=== PATIENT | male | born 1945 | race Caucasian/White ===

== ENCOUNTER 2020-07-02 09:47 | Outpatient (REF) | payer BC, SELFPAY ==
[2020-07-02 11:20] LABS: MANUAL DIFF FLAG NO
[2020-07-02 11:24] LABS: Basophils Absolute Auto 0.1 X10*3/uL (0.0-0.2); Basophils Percent Auto 1.5 % (0-2); Eosinophils Absolute Auto 0.3 X10*3/uL (0.0-0.4); Eosinophils Percent Auto 5.7 % (0-4); Hematocrit 42.4 % (42-52); Hemoglobin 13.1 g/dl (14.0-18.0); Imm Gran Abs Auto 0.03 X10*3/uL (0.00-0.03); Imm Gran Pct Auto 0.6 % (0.0-0.4); Lymphocytes Percent Auto 21.6 % (20-40); Mean Corpuscular HGB Conc 30.9 g/dl (31.0-36.0); Mean Corpuscular Hemoglobin 27.9 pg (27.0-33.0); Mean Corpuscular Volume 90.4 fL (80-98); Mean Platelet Volume 11.9 fL (9.4-12.4); Monocytes Absolute Auto 0.5 X10*3/uL (0.1-1.2); Monocytes Percent Auto 10.9 % (2-11); Neutrophils Absolute Auto 2.8 X10*3/uL (2.0-8.3); Neutrophils Percent Auto 59.7 % (45-73); Platelet Count 185 X10*3/uL (160-400); Red Blood Count 4.69 X10*6/uL (4.60-5.80); Red Cell Distribution Width 16.3 % (11.0-16.0); White Blood Count 4.8 X10*3/uL (4.8-10.8)
[2020-07-02 11:55] LABS: Glucose Urine UA NEG (NEG); Leukocyte Esterase Urine NEG (NEG); Nitrite Urine NEG (NEG); Specific Gravity - Urine 1.015 (1.005-1.025); Urine Blood NEG (NEG); Urine Ketones NEG (NEG); Urine Protein NEG (NEG-TRACE)
[2020-07-02 12:00] LABS: Appearance Urine CLEAR; Color Urine YELLOW
[2020-07-02 12:04] LABS: Alanine Aminotransferase 29 U/L (0-40); Albumin Level 4.1 g/dL (3.5-5.0); Alkaline Phosphatase 82 U/L (39-117); Anion Gap 10 (12-20); Aspartate Amino Transferase 28 U/L (5-37); Bilirubin Total 0.6 mg/dL (0.0-1.0); Blood Urea Nitrogen 21 mg/dL (9-16); Calcium 8.9 mg/dL (8.4-10.2); Carbon Dioxide 32 mmol/L (22-29); Chloride 105 mmol/L (96-108); Cholesterol 129 mg/dL; Estimated Glomerular Filt Rate > 60; Glucose Fasting 89 mg/dL (60-99); HDL Cholesterol 47 mg/dL; LDL Cholesterol Calculated 72 mg/dl; Potassium 3.9 mmol/l (3.3-5.1); Sodium 143 mmol/L (135-145); Total Protein 6.4 g/dL (6.5-8.0); Triglycerides 53 mg/dL
[2020-07-02 12:05] LABS: Microalbum/Creatinine Ratio Ur 11.1 ug/mg cr
[2020-07-02 12:08] LABS: TSH reflex Free T4 1.18 mIU/mL (0.32-4.0)
[2020-07-02 12:23] LABS: Folate 8.9 ng/mL (> or = 4.0); Vitamin B12 273 pg/mL (200-900)
[2020-07-02 12:38] LABS: Amorphous Sediment Urine 2+ /LPF; Mucus Urine 2+ /LPF; RBC Urine 0-2 /HPF (0); WBC Urine 0-2 /HPF (0-4)
== END 2020-07-02 09:48 | disposition home or self-care (01) ==
LOC: HO.HMGCLDS 09:47
PROVIDERS: PCP Internal Medicine; Visit Provider Internal Medicine
DX: E11.42 Type 2 diabetes mellitus with diabetic polyneuropathy (principal); E78.5 Hyperlipidemia, unspecified; I10 Essential (primary) hypertension; I89.0 Lymphedema, not elsewhere classified; E66.9 Obesity, unspecified
CPT/HCPCS: 36415; 80053; 80061; 81001; 82043; 82607; 82746; 84443; 85025

== ENCOUNTER 2020-09-24 10:50 | Outpatient (REF) | payer BC, SELFPAY ==
[2020-09-24 13:57] LABS: MANUAL DIFF FLAG NO
[2020-09-24 14:01] LABS: Glucose Urine UA NEG (NEG); Leukocyte Esterase Urine NEG (NEG); Nitrite Urine NEG (NEG); PH 7.5 (5.0-8.0); Specific Gravity - Urine 1.015 (1.005-1.025); Urine Blood NEG (NEG); Urine Ketones NEG (NEG); Urine Protein NEG (NEG-TRACE)
[2020-09-24 14:09] LABS: Basophils Absolute Auto 0.1 X10*3/uL (0.0-0.2); Basophils Percent Auto 1.8 % (0-2); Eosinophils Absolute Auto 0.3 X10*3/uL (0.0-0.4); Eosinophils Percent Auto 7.4 % (0-4); Hematocrit 44.1 % (42-52); Hemoglobin 13.8 g/dl (14.0-18.0); Imm Gran Abs Auto 0.01 X10*3/uL (0.00-0.03); Imm Gran Pct Auto 0.2 % (0.0-0.4); Lymphocytes Percent Auto 23.6 % (20-40); Mean Corpuscular HGB Conc 31.3 g/dl (31.0-36.0); Mean Corpuscular Hemoglobin 28.3 pg (27.0-33.0); Mean Corpuscular Volume 90.6 fL (80-98); Mean Platelet Volume 11.9 fL (9.4-12.4); Monocytes Absolute Auto 0.4 X10*3/uL (0.1-1.2); Monocytes Percent Auto 9.9 % (2-11); Neutrophils Absolute Auto 2.5 X10*3/uL (2.0-8.3); Neutrophils Percent Auto 57.1 % (45-73); Platelet Count 178 X10*3/uL (160-400); Red Blood Count 4.87 X10*6/uL (4.60-5.80); Red Cell Distribution Width 14.2 % (11.0-16.0); White Blood Count 4.3 X10*3/uL (4.8-10.8)
[2020-09-24 14:15] LABS: Appearance Urine CLEAR; Color Urine YELLOW
[2020-09-24 14:37] LABS: Creatinine Urine 44.71 mg/dL; Microalbum/Creatinine Ratio Ur 22.3 ug/mg cr
[2020-09-24 14:55] LABS: Alanine Aminotransferase 30 U/L (0-40); Albumin Level 4.2 g/dL (3.5-5.0); Alkaline Phosphatase 95 U/L (39-117); Anion Gap 11 (12-20); Aspartate Amino Transferase 27 U/L (5-37); Bilirubin Total 0.7 mg/dL (0.0-1.0); Blood Urea Nitrogen 13 mg/dL (9-16); Calcium 9.1 mg/dL (8.4-10.2); Carbon Dioxide 31 mmol/L (22-29); Chloride 102 mmol/L (96-108); Cholesterol 119 mg/dL; Estimated Glomerular Filt Rate > 60; Glucose Fasting 126 mg/dL (60-99); HDL Cholesterol 47 mg/dL; LDL Cholesterol Calculated 62 mg/dl; Sodium 140 mmol/L (135-145); Total Protein 6.6 g/dL (6.5-8.0); Triglycerides 54 mg/dL
[2020-09-24 14:59] LABS: TSH reflex Free T4 1.06 mIU/mL (0.32-4.0)
== END 2020-09-24 10:51 | disposition home or self-care (01) ==
LOC: HO.HMGCLDS 10:50
PROVIDERS: PCP Internal Medicine; Visit Provider Internal Medicine
DX: I10 Essential (primary) hypertension (principal); E11.9 Type 2 diabetes mellitus without complications; E78.5 Hyperlipidemia, unspecified
CPT/HCPCS: 36415; 80053; 80061; 81003; 82043; 84443; 85025

== ENCOUNTER 2021-01-19 14:58 | Outpatient (REF) | payer BC, SELFPAY ==
--- NOTE | ~2021-01-19 | US_ITS ---
EXAMINATION: US VENOUS ULTRASOUND WITH DOPPLER LOWER EXTREMITY, RIGHT CLINICAL INFORMATION: Pain right lower extremity. Assess for occult DVT COMPARISON: None TECHNIQUE: Ultrasound of the deep veins is performed from the hip to the calf with compression sonography and color and pulse Doppler assessment. Spectral analysis with color-flow imaging is performed. FINDINGS: There is normal venous compression and respiratory variation and augmented flow. The visualized common femoral vein, superficial femoral vein, profunda femoral vein, popliteal vein, and the trifurcation region shows no evidence of deep venous thrombosis. No popliteal fossa cyst demonstrated. US/US venous duplex LE RT IMPRESSION: No DVT demonstrated in the right lower extremity.
== END 2021-01-19 14:59 | disposition home or self-care (01) ==
LOC: HO.US 14:58
PROVIDERS: PCP Internal Medicine; Visit Provider Internal Medicine
DX: M79.661 Pain in right lower leg (principal); M79.89 Other specified soft tissue disorders
CPT/HCPCS: 93971

== ENCOUNTER 2021-04-17 10:54 | Outpatient (REF) | payer BC, SELFPAY ==
[2021-04-17 13:57] LABS: Glucose Urine UA NEG (NEG); Leukocyte Esterase Urine NEG (NEG); MANUAL DIFF FLAG NO; Nitrite Urine NEG (NEG); Urine Blood NEG (NEG); Urine Ketones NEG (NEG); Urine Protein NEG (NEG-TRACE)
[2021-04-17 13:58] LABS: Appearance Urine CLEAR; Color Urine YELLOW
[2021-04-17 14:02] LABS: Basophils Absolute Auto 0.1 X10*3/uL (0.0-0.2); Basophils Percent Auto 1.8 % (0-2); Eosinophils Absolute Auto 0.2 X10*3/uL (0.0-0.4); Eosinophils Percent Auto 5.2 % (0-4); Hematocrit 42.7 % (42-52); Hemoglobin 13.1 g/dl (14.0-18.0); Imm Gran Abs Auto 0.02 X10*3/uL (0.00-0.03); Imm Gran Pct Auto 0.4 % (0.0-0.4); Lymphocytes Percent Auto 21.3 % (20-40); Mean Corpuscular HGB Conc 30.7 g/dl (31.0-36.0); Mean Corpuscular Hemoglobin 27.3 pg (27.0-33.0); Mean Corpuscular Volume 89.1 fL (80-98); Mean Platelet Volume 12.2 fL (9.4-12.4); Monocytes Absolute Auto 0.5 X10*3/uL (0.1-1.2); Monocytes Percent Auto 11.5 % (2-11); Neutrophils Absolute Auto 2.7 X10*3/uL (2.0-8.3); Neutrophils Percent Auto 59.8 % (45-73); Platelet Count 150 X10*3/uL (160-400); Red Blood Count 4.79 X10*6/uL (4.60-5.80); Red Cell Distribution Width 15.7 % (11.0-16.0); White Blood Count 4.5 X10*3/uL (4.8-10.8)
[2021-04-17 14:27] LABS: Alanine Aminotransferase 27 U/L (0-40); Alkaline Phosphatase 85 U/L (39-117); Anion Gap 12 (12-20); Aspartate Amino Transferase 34 U/L (5-37); Bilirubin Total 0.6 mg/dL (0.0-1.0); Blood Urea Nitrogen 14 mg/dL (9-16); Calcium 9.3 mg/dL (8.4-10.2); Carbon Dioxide 28 mmol/L (22-29); Chloride 104 mmol/L (96-108); Cholesterol 129 mg/dL; Estimated Glomerular Filt Rate > 60; Glucose Fasting 107 mg/dL (60-99); HDL Cholesterol 52 mg/dL; LDL Cholesterol Calculated 67 mg/dl; Potassium 4.2 mmol/L (3.3-5.1); Sodium 140 mmol/L (135-145); Total Protein 6.6 g/dL (6.5-8.0); Triglycerides 53 mg/dL
[2021-04-17 14:28] LABS: Estimated Average Glucose 137 mg/dL; Hemoglobin A1c % 6.4 %
[2021-04-17 14:46] LABS: Creatinine Urine 67.39 mg/dL; Microalbum/Creatinine Ratio Ur 20.7 ug/mg cr
[2021-04-17 14:50] LABS: TSH reflex Free T4 0.94 uIU/mL (0.32-4.0)
== END 2021-04-17 10:55 | disposition home or self-care (01) ==
LOC: HO.HMGCLDS 10:54
PROVIDERS: PCP Internal Medicine; Visit Provider Internal Medicine
DX: E11.9 Type 2 diabetes mellitus without complications (principal); E78.00 Pure hypercholesterolemia, unspecified; I10 Essential (primary) hypertension
CPT/HCPCS: 36415; 80053; 80061; 81003; 82043; 83036; 84443; 85025

== ENCOUNTER 2021-08-07 10:33 | Outpatient (REF) | payer BC, SELFPAY ==
[2021-08-07 13:54] LABS: MANUAL DIFF FLAG NO
[2021-08-07 14:01] LABS: Basophils Absolute Auto 0.1 X10*3/uL (0.0-0.2); Basophils Percent Auto 2.1 % (0-2); Eosinophils Absolute Auto 0.3 X10*3/uL (0.0-0.4); Eosinophils Percent Auto 5.7 % (0-4); Hematocrit 43.7 % (42.0-52.0); Hemoglobin 13.7 g/dl (14.0-18.0); Imm Gran Abs Auto 0.02 X10*3/uL (0.00-0.03); Imm Gran Pct Auto 0.4 % (0.0-0.4); Lymphocytes Absolute Auto 1.2 X10*3/uL (1.2-4.9); Lymphocytes Percent Auto 24.3 % (20-40); Mean Corpuscular HGB Conc 31.4 g/dl (31.0-36.0); Mean Corpuscular Volume 89.2 fL (80.0-98.0); Mean Platelet Volume 12.1 fL (9.4-12.4); Monocytes Absolute Auto 0.5 X10*3/uL (0.1-1.2); Monocytes Percent Auto 10.8 % (2-11); Neutrophils Absolute Auto 2.7 x10*3/uL (2.0-8.3); Neutrophils Percent Auto 56.7 % (45-73); Platelet Count 152 X10*3/uL (160-400); Red Cell Distribution Width 14.6 % (11.0-16.0); White Blood Count 4.7 X10*3/uL (4.8-10.8)
[2021-08-07 14:12] LABS: Appearance Urine CLEAR; Color Urine YELLOW; Glucose Urine UA NEG (NEG); Leukocyte Esterase Urine NEG (NEG); Nitrite Urine NEG (NEG); PH 7.5 (5.0-8.0); Urine Blood NEG (NEG); Urine Ketones NEG (NEG); Urine Protein NEG (NEG-TRACE)
[2021-08-07 14:20] LABS: Alanine Aminotransferase 47 U/L (0-40); Alkaline Phosphatase 82 U/L (39-117); Anion Gap 11 (12-20); Aspartate Amino Transferase 38 U/L (5-37); Bilirubin Total 0.7 mg/dL (0.0-1.0); Blood Urea Nitrogen 14 mg/dL (9-16); Calcium 9.2 mg/dL (8.4-10.2); Carbon Dioxide 30 mmol/L (22-29); Chloride 102 mmol/L (96-108); Cholesterol 126 mg/dL; Estimated Glomerular Filt Rate > 60; Glucose Fasting 108 mg/dL (60-99); HDL Cholesterol 46 mg/dL; LDL Cholesterol Calculated 68 mg/dl; Sodium 139 mmol/L (135-145); Total Protein 6.4 g/dL (6.5-8.0); Triglycerides 62 mg/dL
[2021-08-07 14:26] LABS: Creatinine Urine 58.49 mg/dL; Microalbum/Creatinine Ratio Ur 25.6 ug/mg cr
[2021-08-07 14:46] LABS: Prostate Specific Antigen 4.13 ng/mL (<0.05-4.0); TSH reflex Free T4 1.79 uIU/mL (0.32-4.0); Vitamin D 25-OH Total 11.1 ng/mL (>30)
[2021-08-07 15:02] LABS: Folate 9.9 ng/mL (> or = 4.0); Vitamin B12 270 pg/mL (200-900)
== END 2021-08-07 10:34 | disposition home or self-care (01) ==
LOC: HO.HMGCLDS 10:33
PROVIDERS: PCP Internal Medicine; Visit Provider Internal Medicine
DX: Z00.00 Encounter for general adult medical examination without abnormal findings (principal); E55.9 Vitamin D deficiency, unspecified; G57.93 Unspecified mononeuropathy of bilateral lower limbs; I10 Essential (primary) hypertension; E11.42 Type 2 diabetes mellitus with diabetic polyneuropathy; E78.00 Pure hypercholesterolemia, unspecified; E66.9 Obesity, unspecified; I89.0 Lymphedema, not elsewhere classified; N40.0 Benign prostatic hyperplasia without lower urinary tract symptoms; E11.9 Type 2 diabetes mellitus without complications
CPT/HCPCS: 36415; 80053; 80061; 81003; 82043; 82306; 82607; 82746; 84153; 84443; 85025

== ENCOUNTER 2021-12-10 11:09 | Outpatient (REF) | payer BC, SELFPAY ==
[2021-12-10 13:58] LABS: MANUAL DIFF FLAG NO
[2021-12-10 14:02] LABS: Basophils Absolute Auto 0.1 X10*3/uL (0.0-0.2); Basophils Percent Auto 1.7 % (0-2); Eosinophils Absolute Auto 0.3 X10*3/uL (0.0-0.4); Eosinophils Percent Auto 5.4 % (0-4); Hematocrit 43.1 % (42.0-52.0); Hemoglobin 13.7 g/dl (14.0-18.0); Imm Gran Abs Auto 0.02 X10*3/uL (0.00-0.03); Imm Gran Pct Auto 0.4 % (0.0-0.4); Lymphocytes Absolute Auto 1.1 X10*3/uL (1.2-4.9); Lymphocytes Percent Auto 22.1 % (20-40); Mean Corpuscular HGB Conc 31.8 g/dl (31.0-36.0); Mean Corpuscular Hemoglobin 28.7 pg (27.0-33.0); Mean Corpuscular Volume 90.2 fL (80.0-98.0); Mean Platelet Volume 11.7 fL (9.4-12.4); Monocytes Absolute Auto 0.5 X10*3/uL (0.1-1.2); Monocytes Percent Auto 11.2 % (2-11); Neutrophils Absolute Auto 2.9 x10*3/uL (2.0-8.3); Neutrophils Percent Auto 59.2 % (45-73); Platelet Count 173 X10*3/uL (160-400); Red Blood Count 4.78 X10*6/uL (4.60-5.80); Red Cell Distribution Width 14.6 % (11.0-16.0); White Blood Count 4.8 X10*3/uL (4.8-10.8)
[2021-12-10 14:14] LABS: Appearance Urine CLEAR; Color Urine YELLOW; Glucose Urine UA NEG (NEG); Leukocyte Esterase Urine NEG (NEG); Nitrite Urine NEG (NEG); Specific Gravity - Urine <= 1.005 (1.005-1.025); UACC Culture Trigger NO; Urine Blood TRACE (NEG); Urine Ketones NEG (NEG); Urine Protein NEG (NEG-TRACE)
[2021-12-10 14:18] LABS: Estimated Average Glucose 151 mg/dL; Hemoglobin A1c % 6.9 %
[2021-12-10 14:22] LABS: Alanine Aminotransferase 89 U/L (0-40); Albumin Level 4.1 g/dL (3.5-5.0); Alkaline Phosphatase 81 U/L (39-117); Anion Gap 13 (12-20); Aspartate Amino Transferase 52 U/L (5-37); Bilirubin Total 0.7 mg/dL (0.0-1.0); Blood Urea Nitrogen 13 mg/dL (9-16); Calcium 9.6 mg/dL (8.4-10.2); Carbon Dioxide 27 mmol/L (22-29); Chloride 104 mmol/L (96-108); Cholesterol 135 mg/dL; Estimated Glomerular Filt Rate > 60; Glucose Fasting 119 mg/dL (60-99); HDL Cholesterol 47 mg/dL; LDL Cholesterol Calculated 72 mg/dl; Sodium 140 mmol/L (135-145); Total Protein 6.6 g/dL (6.5-8.0); Triglycerides 80 mg/dL
[2021-12-10 14:33] LABS: Creatinine Urine 41.92 mg/dL; Microalbum/Creatinine Ratio Ur 21.4 ug/mg cr
[2021-12-10 14:41] LABS: WBC Urine 0-2 /HPF (0-4)
[2021-12-10 14:42] LABS: Squamous Epithelial Cell Urine TRACE /LPF
== END 2021-12-10 11:10 | disposition home or self-care (01) ==
LOC: HO.HMGCLDS 11:09
PROVIDERS: Visit Provider Internal Medicine
DX: I10 Essential (primary) hypertension (principal); E11.9 Type 2 diabetes mellitus without complications; E55.9 Vitamin D deficiency, unspecified; E78.00 Pure hypercholesterolemia, unspecified
CPT/HCPCS: 36415; 80053; 80061; 81001; 81003; 82043; 82306; 83036; 84443; 85025

== ENCOUNTER 2022-05-12 11:05 | Outpatient (REF) | payer BC, SELFPAY ==
[2022-05-12 13:55] LABS: Appearance Urine Clear; Color Urine Yellow; Glucose Urine UA Negative (Negative); Leukocyte Esterase Urine Negative (Negative); Nitrite Urine Negative (Negative); Specific Gravity - Urine 1.015 (1.005-1.025); Urine Ketones Negative (Negative); Urine Protein Trace mg/dL (Neg-Trace)
[2022-05-12 13:59] LABS: Urine Blood Trace (Negative)
[2022-05-12 14:03] LABS: Basophils Absolute Auto 0.1 X10*3/uL (0.0-0.2); Basophils Percent Auto 2.1 % (0-2); Eosinophils Absolute Auto 0.2 X10*3/uL (0.0-0.4); Eosinophils Percent Auto 4.7 % (0-4); Hematocrit 45.8 % (42.0-52.0); Hemoglobin 14.4 g/dl (14.0-18.0); Imm Gran Abs Auto 0.02 X10*3/uL (0.00-0.03); Imm Gran Pct Auto 0.5 % (0.0-0.4); Lymphocytes Absolute Auto 0.8 X10*3/uL (1.2-4.9); Lymphocytes Percent Auto 19.9 % (20-40); MANUAL DIFF FLAG SCAN; Mean Corpuscular HGB Conc 31.4 g/dl (31.0-36.0); Mean Corpuscular Hemoglobin 28.2 pg (27.0-33.0); Mean Corpuscular Volume 89.6 fL (80.0-98.0); Mean Platelet Volume 11.9 fL (9.4-12.4); Monocytes Absolute Auto 0.4 X10*3/uL (0.1-1.2); Monocytes Percent Auto 11.1 % (2-11); Neutrophils Absolute Auto 2.4 x10*3/uL (2.0-8.3); Neutrophils Percent Auto 61.7 % (45-73); PLT CLUMP 1; Red Blood Count 5.11 X10*6/uL (4.60-5.80); Red Cell Distribution Width 14.1 % (11.0-16.0); SCAN SMEAR FLAG 1
[2022-05-12 14:04] LABS: Bacteria Urine None Seen (None Seen); Hyaline Casts Urine 0-2 /LPF (0-2); Squamous Epithelial Cell Urine 0-2 /HPF (0-2); WBC Urine 0-5 /HPF (0-5)
[2022-05-12 14:05] LABS: White Blood Count 3.9 X10*3/uL (4.8-10.8)
[2022-05-12 14:06] LABS: Platelet Count 155 X10*3/uL (160-400)
[2022-05-12 14:26] LABS: SLIDE REVIEW VERIFIED
[2022-05-12 14:29] LABS: Alanine Aminotransferase 21 U/L (0-40); Albumin Level 4.1 g/dL (3.5-5.0); Alkaline Phosphatase 84 U/L (39-117); Anion Gap 14 (12-20); Aspartate Amino Transferase 21 U/L (5-37); Bilirubin Total 0.6 mg/dL (0.0-1.0); Blood Urea Nitrogen 14 mg/dL (9-16); Calcium 9.1 mg/dL (8.4-10.2); Carbon Dioxide 28 mmol/L (22-29); Chloride 104 mmol/L (96-108); Cholesterol 132 mg/dL; Estimated Glomerular Filt Rate > 60; Glucose Fasting 135 mg/dL (60-99); HDL Cholesterol 50 mg/dL; LDL Cholesterol Calculated 71 mg/dl; Potassium 3.8 mmol/L (3.3-5.1); Sodium 142 mmol/L (135-145); Total Protein 6.6 g/dL (6.5-8.0); Triglycerides 58 mg/dL
[2022-05-12 14:34] LABS: Estimated Average Glucose 148 mg/dL; Hemoglobin A1c % 6.8 %
[2022-05-12 14:46] LABS: Creatinine Urine 79.65 mg/dL; Microalbum/Creatinine Ratio Ur 80.3 ug/mg cr
[2022-05-12 14:52] LABS: TSH reflex Free T4 1.36 uIU/mL (0.32-4.0); Vitamin D 25-OH Total 27.5 ng/mL (>30)
== END 2022-05-12 11:06 | disposition home or self-care (01) ==
LOC: HO.HMGCLDS 11:05
PROVIDERS: PCP Internal Medicine; Visit Provider Internal Medicine
DX: E78.00 Pure hypercholesterolemia, unspecified (principal); E11.9 Type 2 diabetes mellitus without complications; E55.9 Vitamin D deficiency, unspecified; I10 Essential (primary) hypertension
CPT/HCPCS: 36415; 80053; 80061; 81003; 82043; 82306; 83036; 84443; 85025

== ENCOUNTER 2023-03-15 09:10 | Outpatient (REF) | payer BC, SELFPAY ==
[2023-03-15 11:27] LABS: MANUAL DIFF FLAG NO
[2023-03-15 11:38] LABS: Basophils Absolute Auto 0.1 X10*3/uL (0.0-0.2); Basophils Percent Auto 2.6 % (0-2); Eosinophils Absolute Auto 0.4 X10*3/uL (0.0-0.4); Eosinophils Percent Auto 8.8 % (0-4); Hematocrit 44.7 % (42.0-52.0); Imm Gran Abs Auto 0.02 X10*3/uL (0.00-0.03); Imm Gran Pct Auto 0.4 % (0.0-0.4); Lymphocytes Absolute Auto 0.9 X10*3/uL (1.2-4.9); Lymphocytes Percent Auto 18.6 % (20-40); Mean Corpuscular HGB Conc 31.3 g/dl (31.0-36.0); Mean Corpuscular Hemoglobin 28.3 pg (27.0-33.0); Mean Corpuscular Volume 90.5 fL (80.0-98.0); Mean Platelet Volume 11.6 fL (9.4-12.4); Monocytes Absolute Auto 0.6 X10*3/uL (0.1-1.2); Neutrophils Absolute Auto 2.7 x10*3/uL (2.0-8.3); Neutrophils Percent Auto 57.6 % (45-73); Platelet Count 172 X10*3/uL (160-400); Red Blood Count 4.94 X10*6/uL (4.60-5.80); Red Cell Distribution Width 14.1 % (11.0-16.0); White Blood Count 4.7 X10*3/uL (4.8-10.8)
[2023-03-15 11:50] LABS: Estimated Average Glucose 134 mg/dL; Hemoglobin A1c % 6.3 %
[2023-03-15 11:56] LABS: Appearance Urine Clear; Color Urine Yellow; Glucose Urine UA Negative (Negative); Leukocyte Esterase Urine Negative (Negative); Nitrite Urine Negative (Negative); Urine Blood Negative (Negative); Urine Ketones Negative (Negative); Urine Protein Negative (Neg-Trace)
[2023-03-15 12:19] LABS: Alanine Aminotransferase 20 U/L (0-40); Albumin Level 3.8 g/dL (3.5-5.0); Alkaline Phosphatase 79 U/L (39-117); Anion Gap 12 (12-20); Aspartate Amino Transferase 24 U/L (5-37); Bilirubin Total 0.8 mg/dL (0.0-1.0); Blood Urea Nitrogen 12 mg/dL (9-16); Calcium 9.9 mg/dL (8.4-10.2); Carbon Dioxide 31 mmol/L (22-29); Chloride 102 mmol/L (96-108); Cholesterol 181 mg/dL; Estimated Glomerular Filt Rate > 60; Glucose Fasting 126 mg/dL (60-99); HDL Cholesterol 42 mg/dL; LDL Cholesterol Calculated 115 mg/dl; Potassium 4.1 mmol/L (3.3-5.1); Sodium 141 mmol/L (135-145); Total Protein 6.9 g/dL (6.5-8.0); Triglycerides 122 mg/dL
[2023-03-15 12:25] LABS: TSH reflex Free T4 1.41 uIU/mL (0.32-4.0); Vitamin D 25-OH Total 65.3 ng/mL (>30)
[2023-03-15 12:40] LABS: Folate 7.9 ng/mL (> or = 4.0); Vitamin B12 266 pg/mL (200-900)
[2023-03-15 13:11] LABS: Creatinine Urine 62.74 mg/dL
== END 2023-03-15 09:11 | disposition home or self-care (01) ==
LOC: HO.HMGCLDS 09:10
PROVIDERS: PCP Internal Medicine; Visit Provider Internal Medicine
DX: E78.00 Pure hypercholesterolemia, unspecified (principal); I10 Essential (primary) hypertension; E11.9 Type 2 diabetes mellitus without complications; R30.0 Dysuria; E55.9 Vitamin D deficiency, unspecified; E53.8 Deficiency of other specified B group vitamins
CPT/HCPCS: 36415; 80053; 80061; 81003; 82043; 82306; 82607; 82746; 83036; 84443; 85025

== ENCOUNTER 2023-04-26 10:15 | Outpatient (AMB) | payer BC, SELFPAY ==
[2023-04-26 10:16] VITALS: BP 146/70; PULSE 97; O2SAT 96; BMI 37.1
--- NOTE | 2023-04-26 10:16 | A.OFFPC_ITS ---
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 Required: No Accompanied by: Self / Same As Patient Allergies penicillin V Allergy (Severe, Verified 04/26/23 11:02) hives Medication List - Last Reconciled 04/26/23 by Joshua Rahman MD amlodipine-benazepril 10-20 mg 1 cap PO DAILY aspirin (Adult Low Dose Aspirin) 81 mg PO DAILY atorvastatin 40 mg PO QPM cholecalciferol (vitamin D3) 50 mcg PO DAILY 90 days doxepin 25 mg PO BEDTIME PRN 30 days fexofenadine (Radha Allergy) 180 mg PO DAILY PRN furosemide 20 mg PO QAM PRN glipizide 10 mg PO DAILY hydrochlorothiazide 25 mg PO DAILY 90 days meloxicam 15 mg PO DAILY PRN 90 days metformin 2 tabs in am and 1 tab in pm PO 2 times a day; 90 days mirtazapine 30 mg PO BEDTIME pioglitazone 30 mg PO DAILY 90 days Tobacco use date assessed: 04/26/23 Fall risk assessment: No Falls in past year Last assessed Fall Risk: 04/26/23 Dental Screening Dental Screen Date: 04/26/23 Did you have a dental visit in the last 12 months?: Yes Did you have a dental problem in the last 6 months where you did not have access to dental care?: No Was dental information given to patient?: Patient has dentist HPI [facility] f/u HPI Details Patient comes in today for his follow up visit States that he feels okay Still has a recurrent cough that he's had for the last 2 years - feels that it is mostly from allergies and states that it comes and goes and does not really bother him too much Coughs up clear phlegm at times and states that it seems to calm down when the weather turns cooler He denies any fever, sore throat or any nasal congestion Denies any headaches or dizziness Denies any chest pains, no SOB No nausea/vomiting, no abdominal pain No change in bowel habits noted States that his previous depression (from when his last fall) has gotten a lot better over the past few months Needs a few of his Rx refilled Had his follow up labs done last month - to discuss his results Would also like to get a referral to see podiatry for his toes/toenails - states that a few of his toenails are thick and disfigured PENDING SALE TO [facility] Medical History Anxiety Carpal tunnel syndrome, left Cataracts, bilateral Controlled diabetes mellitus with diabetic polyneuropathy Diabetes mellitus Essential hypertension Insomnia Lymphedema of both lower extremities Neuropathic pain of both feet Obesity (BMI 30-39.9) Pain and swelling of right lower leg Pain of left lateral upper thigh Surgical History History of appendectomy History of hemorrhoidectomy Pure hypercholesterolemia Family History Father Lung cancer Mother FH: ovarian cancer Social History Housing: House Alcohol intake: current Alcohol intake frequency: a few times a week Patient Tobacco Use Status: Never used Tobacco e-Cigarette/Vaping Use: Never Used Second Hand Smoke Exposure: Yes service: Yes Current occupational status: retired Cognitive needs: No Hearing needs: No Vision needs: Yes Questionnaire PHQ-9 Over the last 2 weeks, how often have you been bothered by any of the following problems? 1. Little interest or pleasure in doing things: more than half the days 2. Feeling down, depressed, or hopeless: more than half the days 3. Trouble falling or staying asleep, or sleeping too much: more than half the days 4. Feeling tired or having little energy: more than half the days 5. Poor appetite or overeating: more than half the days 6. Feeling bad about yourself - or that you are a failure or have let yourself or your family down: not at all 7. Trouble concentrating on things, such as reading the newspaper or watching television: not at all 8. Moving or speaking so slowly that other people could have noticed. Or the opposite - being so fidgety or restless that you have been moving around a lot more than usual: not at all 9. Thoughts that you would be better off or of hurting yourself in some way: not at all Total score: 10 Depression Screening Interpretation: Positive (states that his mood symptoms have gotten a lot better lately) Depression Screening Follow-up: Existing condition and In treatment 99150 - PHQ-9 Billing: Yes Source: Developed by Drs. Vijay Mason, Isabelle Morales, Haris Lopez and colleagues, with an educational yosi from [employer]. Thrive Questionnaire Date Thrive assessed: 04/26/23 I am a: Patient What is your living situation today?: I have a steady place to live Within the past 12 months, did the food you bought not last and you didn't have the money to get more?: Never true Within the past 12 months, did you worry whether your food would run out before you got money to buy more?: Never true Do you have trouble paying for medicines?: No Do you have trouble getting transportation to medical appointments?: No Do you have trouble paying your heating and electricity bill?: No Do you have trouble taking care of your child, family member or friend?: No Do you have trouble with day-to-day activities such as bathing, preparing meals, shopping, managing finances, etc.?: No Are you currently unemployed and looking for a job?: No Are you interested in more education?: No Please select the resources that you would like help with: None Currently or been in a relationship where the following occur: no concerns reported AUDIT C Alcohol Use Questionnaire (AUDIT-C) 1. How often do you have a drink containing alcohol?: Never 3. How often do you have six or more drinks on one occasion?: Never Total Score: 0 Score Reviewed/Action Taken: Yes KIRILL-7 AMB Questionnaire KIRILL-7 Date KIRILL - 7 assessed: 04/26/23 Feeling nervous, anxious, or on edge: 0 = Not at all Not being able to stop or control worryin = Not at all Worrying too much about different things: 0 = Not at all Trouble relaxin = Not at all Being so restless that it is hard to sit still: 0 = Not at all Becoming easily annoyed or irritable: 0 = Not at all Feeling afraid as if something awful might happen: 0 = Not at all Total KIRILL-7 score (0-4 normal; 5-9 mild; 10-14 moderate; 15-21 severe): 0 Source: Developed by Drs. Vijay Mason, Isabelle Morales, Haris Lopez and colleagues, with an educational yosi from [employer]. Review of Systems Const Denies fatigue, Denies fever(s) and Denies headache(s) ENT Denies dysphagia, Denies dizziness, Denies otalgia, Denies headache(s), Denies nasal congestion, Denies neck pain and Denies sore throat Card Denies chest pain and Reports dyspnea on exertion (mild) Resp Denies chest congestion, Reports cough (on and off - see HPI), Denies excessive phlegm production, Reports dyspnea on exertion (mild) and Denies wheezing GI Denies abdominal pain, Denies constipation, Denies dysphagia, Denies heartburn, Denies diarrhea, Denies nausea and Denies vomiting Denies dysuria, Denies nocturia and Reports urinary frequency (mostly during the day and after he drinks his morning coffee) Musc Reports back pain (on and off over the lower back), Reports arthralgias (left hip) and Denies neck pain Neuro Denies dizziness and Denies headache(s) Psych Reports depression (improving) Endo Denies fatigue Nolberto/Lymph Details: frequent swelling of both legs and feet Aller/Immun Denies wheezing Physical exam (Primary Care) Vital Signs: Last Vital Signs Pulse 97 04/26/23 10:16 BP 146/70 H 04/26/23 10:16 Pulse Ox 96 04/26/23 10:16 Oxygen Delivery Method Room Air 04/26/23 10:16 BMI result Body Mass Index 37.1 Tobacco/Smoking Status: Tobacco use Status Tobacco use date assessed 04/26/23 04/26/23 10:22 Patient Tobacco Use Status Never used Tobacco 04/26/23 10:22 e-Cigarette/Vaping Use Never Used 04/26/23 10:22 PHQ-9: PHQ-9 Score PHQ-9: Total score 10 04/26/23 10:22 Depression Screening Interpretation: Positive (states that his mood symptoms have gotten a lot better lately) Depression Screening Follow-up: Existing condition and In treatment Thrive Assessment: Date of Thrive Assessment Date Thrive assessed 04/26/23 04/26/23 10:22 Currently or been in a relationship where the following occur: no concerns reported Const General: no acute distress and alert HENMT Ears: TM's normal bilaterally and EAC's normal Throat: Yes posterior oropharynx normal and Yes tonsils normal (no TP congestion noted) Neck Neck: Yes no lymphadenopathy and Yes supple Resp Auscultation: clear to auscultation bilaterally, no rales and no wheezes Cardio Rate: regular rate Rhythm: regular rhythm Heart sounds: no murmurs GI Palpation (GI): Soft to palpation and nontender Auscultation: normal bowel sounds Back/Spine/Pelvis Thoracic/Lumbar Spine: lumbar spinal tenderness Skin Rashes: no rashes Extrem General: No clubbing, No cyanosis and Yes edema (2+ edema of both legs and feet - currently has compression stockings on) Left lower extremity: hip/thigh Details: tenderness Location: of the hip Results Reviewed Results Reviewed: Laboratory Tests 07/02/20 07/02/20 03/15/23 10:00 10:00 09:16 WBC 4.8 4.7 L Hgb 13.1 L 14.0 Hct 42.4 44.7 Plt Count 185 172 Sodium 143 Potassium 3.9 Creatinine 0.95 Estimated GFR > 60 Fasting Glucose Hemoglobin A1c % Calcium AST ALT Triglycerides Cholesterol LDL Cholesterol, Calc HDL Cholesterol Vitamin B12 25-OH Vitamin D Total TSH Ur Specific [place] Urine Protein Urine Glucose (UA) Urine Blood Microalb/Creat Ratio 03/15/23 03/15/23 03/15/23 09:16 09:16 09:16 WBC Hgb Hct Plt Count Sodium 141 Potassium 4.1 Creatinine 0.88 Estimated GFR > 60 Fasting Glucose 126 H Hemoglobin A1c % 6.3 Calcium 9.9 D AST 24 ALT 20 Triglycerides 122 Cholesterol 181 LDL Cholesterol, Calc 115 HDL Cholesterol 42 Vitamin B12 266 25-OH Vitamin D Total 65.3 TSH 1.41 Ur Specific [place] Urine Protein Urine Glucose (UA) Urine Blood Microalb/Creat Ratio 03/15/23 03/15/23 09:20 09:20 WBC Hgb Hct Plt Count Sodium Potassium Creatinine Estimated GFR Fasting Glucose Hemoglobin A1c % Calcium AST ALT Triglycerides Cholesterol LDL Cholesterol, Calc HDL Cholesterol Vitamin B12 25-OH Vitamin D Total TSH Ur Specific [place] 1.010 Urine Protein Negative Urine Glucose (UA) Negative Urine Blood Negative Microalb/Creat Ratio 27.0 Assessment and Plan Assessment & Plan (1) Essential hypertension: Code(s): I10 - Essential (primary) hypertension Plan: Reinforced low sodium diet - goal is systolic BP of at least 140 mm or less Continue Amlodipine-Benazepril 10-20 mg QD and HCTZ 25 mg QD Patient instructed to continue monitoring his BP closely (2) Pure hypercholesterolemia: Code(s): E78.00 - Pure hypercholesterolemia, unspecified Plan: Results of his labs done last month reviewed and discussed with patient - advised that his cholesterol levels have increased significantly from last year Patient admits that he has been out of his Atorvastatin for months now; will start him back on Atorvastatin 40 mg QD - Rx refilled Reinforced low cholesterol diet Will recheck his labs again in 4 months for follow up (3) Diabetes mellitus: Code(s): E11.9 - Type 2 diabetes mellitus without complications Qualifiers: Diabetes mellitus type: type 2 Diabetes mellitus termite inspector insulin use: without termite inspector use Diabetes mellitus complication status: with neurologic complications Diabetes mellitus complication detail: with polyneuropathy Qualified Code(s): E11.42 - Type 2 diabetes mellitus with diabetic polyneuropathy Plan: HgbA1c was at 6.3% on his labs done last month (was at 6.8% on his labs done previously in April 2022) - goal is <7.0% Reinforced diabetic diet Continue Glipizide 10 mg QD, Pioglitazone 30 mg QD and Metformin 500 mg BID - Rx refilled (4) Lymphedema of both lower extremities: Code(s): I89.0 - Lymphedema, not elsewhere classified Plan: Patient takes Furosemide 20 mg Q AM PRN for edema Reinforced to continue with leg elevation as often as he can and the use of compression stockings PRN to help manage his edema (5) Dyspnea: Code(s): R06.00 - Dyspnea, unspecified Qualifiers: Dyspnea type: dyspnea on exertion Qualified Code(s): R06.09 - Other forms of dyspnea Plan: Mostly exertional and is most likely multifactorial, including due to his weight and physical decompensation States that his dyspnea has gotten better over the past few months His recent labs done last month showed normal renal function (6) Onychomycosis of toenail: Code(s): B35.1 - Tinea unguium Plan: Per request, will refer to podiatry for further evaluation and management (7) Neuropathic pain of both feet: Code(s): G57.93 - Unspecified mononeuropathy of bilateral lower limbs Plan: Mostly due to diabetic neuropathy States that his lower extremity symptoms are mostly tolerable and he still does not require any Rx or intervention at this time (8) Insomnia: Code(s): G47.00 - Insomnia, unspecified Qualifiers: Insomnia type: primary Qualified Code(s): F51.01 - Primary insomnia Plan: Sleep hygiene reinforced Mirtazapine was helping with his sleep until last fall; his trouble sleeping has gotten worse since his last fall but is now improving again Continue Trazodone 50 mg Q HS PRN; tried some OTC Melatonin previously, which did NOT help (9) Anxiety: Code(s): F41.9 - Anxiety disorder, unspecified Plan: Continue Mirtazapine 30 mg Q HS (10) Obesity (BMI 30-39.9): Code(s): E66.9 - Obesity, unspecified Plan: Reinforced diet/exercise as tolerated/lose weight Plan Follow up in 4 months Orders: Orders Complete Blood Count Auto Diff 4 Months I10 - Essential (primary) hypertension Comprehensive [place]. Panel Fast 4 Months E78.00 - Pure hypercholesterolemia, unspecified Lipid Panel 4 Months E78.00 - Pure hypercholesterolemia, unspecified Microalbumin, Random (w Creat) 4 Months E11.9 - Type 2 diabetes mellitus without complications TSH reflex Free T4 4 Months E78.00 - Pure hypercholesterolemia, unspecified UA CC w/rflx Micro + Cult 4 Months R30.0 - Dysuria Vitamin D 25-OH Total 4 Months E55.9 - Vitamin D deficiency, unspecified Vitamin B12 and Folate 4 Months E53.8 - Deficiency of other specified B group vitamins Hemoglobin A1c 4 Months E11.9 - Type 2 diabetes mellitus without complications Referrals Podiatry Referral B35.1 - Tinea unguium Medications: Changed From glipizide 10 mg PO DAILY 90 tabs 3RF To glipizide 10 mg PO DAILY 90 days 90 tabs 3RF From atorvastatin 40 mg PO QPM 90 tabs 0RF To atorvastatin 40 mg PO QPM 90 days 90 tabs 3RF Refilled metformin 2 tabs in am and 1 tab in pm PO 2 times a day; 90 days 270 tabs 3RF E11.9 - Type 2 diabetes mellitus without complications Coding Level of Care Code Est Pt Level 4 (21737) Diagnoses Essential hypertension I10 Pure hypercholesterolemia E78.00 Diabetes mellitus E11.42 Diabetes mellitus type: type 2 Diabetes mellitus detention insulin use: without termite inspector use Diabetes mellitus complication status: with neurologic complications Diabetes mellitus complication detail: with polyneuropathy Lymphedema of both lower extremities I89.0 Dyspnea R06.09 Dyspnea type: dyspnea on exertion Onychomycosis of toenail B35.1 Neuropathic pain of both feet G57.93 Insomnia F51.01 Insomnia type: primary Anxiety F41.9 Obesity (BMI 30-39.9) E66.9
== END 2023-04-26 11:19 | disposition home or self-care (01) ==
PROVIDERS: PCP Internal Medicine; Visit Provider Internal Medicine
DX: I10 Essential (primary) hypertension (principal); E11.42 Type 2 diabetes mellitus with diabetic polyneuropathy; F41.9 Anxiety disorder, unspecified; E78.00 Pure hypercholesterolemia, unspecified; I89.0 Lymphedema, not elsewhere classified; R06.09 Other forms of dyspnea; B35.1 Tinea unguium; G57.93 Unspecified mononeuropathy of bilateral lower limbs; F51.01 Primary insomnia; E66.9 Obesity, unspecified
CPT/HCPCS: 99214

== ENCOUNTER 2023-08-25 11:53 | Outpatient (REF) | payer BC, SELFPAY ==
[2023-08-25 13:06] LABS: MANUAL DIFF FLAG NO
[2023-08-25 13:26] LABS: Appearance Urine Clear; Color Urine Yellow; Glucose Urine UA Negative (Negative); Leukocyte Esterase Urine Negative (Negative); Nitrite Urine Negative (Negative); PH 7.5 (5.0-9.0); Urine Blood Negative (Negative); Urine Ketones Negative (Negative); Urine Protein Negative (Neg-Trace)
[2023-08-25 13:27] LABS: Basophils Absolute Auto 0.1 X10*3/uL (0.0-0.2); Basophils Percent Auto 2.2 % (0-2); Eosinophils Absolute Auto 0.2 X10*3/uL (0.0-0.4); Eosinophils Percent Auto 4.8 % (0-4); Hematocrit 43.7 % (42.0-52.0); Hemoglobin 13.6 g/dl (14.0-18.0); Imm Gran Abs Auto 0.02 X10*3/uL (0.00-0.03); Imm Gran Pct Auto 0.4 % (0.0-0.4); Lymphocytes Absolute Auto 0.8 X10*3/uL (1.2-4.9); Lymphocytes Percent Auto 16.5 % (20-40); Mean Corpuscular HGB Conc 31.1 g/dl (31.0-36.0); Mean Corpuscular Hemoglobin 28.6 pg (27.0-33.0); Mean Corpuscular Volume 91.8 fL (80.0-98.0); Mean Platelet Volume 11.6 fL (9.4-12.4); Monocytes Absolute Auto 0.5 X10*3/uL (0.1-1.2); Monocytes Percent Auto 10.9 % (2-11); Neutrophils Absolute Auto 3.2 x10*3/uL (2.0-8.3); Neutrophils Percent Auto 65.2 % (45-73); Platelet Count 163 X10*3/uL (160-400); Red Blood Count 4.76 X10*6/uL (4.60-5.80); Red Cell Distribution Width 14.8 % (11.0-16.0)
[2023-08-25 13:41] LABS: Estimated Average Glucose 137 mg/dL; Hemoglobin A1c % 6.4 % (<6.0)
[2023-08-25 14:00] LABS: B Type Natriuretic Peptide 25 pg/mL (<100)
[2023-08-25 14:02] LABS: Alanine Aminotransferase 23 U/L (0-40); Alkaline Phosphatase 98 U/L (39-117); Anion Gap 10 (12-20); Aspartate Amino Transferase 22 U/L (5-37); Bilirubin Total 0.6 mg/dL (0.0-1.0); Blood Urea Nitrogen 13 mg/dL (9-16); Calcium 9.6 mg/dL (8.4-10.2); Carbon Dioxide 30 mmol/L (22-29); Chloride 104 mmol/L (96-108); Cholesterol 118 mg/dL (<200); Estimated Glomerular Filt Rate > 60; Glucose Fasting 164 mg/dL (60-99); HDL Cholesterol 48 mg/dL (>40); LDL Cholesterol Calculated 60 mg/dL (<100); Potassium 4.3 mmol/L (3.3-5.1); Sodium 140 mmol/L (135-145); Total Protein 6.8 g/dL (6.5-8.0); Triglycerides 52 mg/dL (<150)
[2023-08-25 14:04] LABS: Creatinine Urine 57.58 mg/dL; TSH reflex Free T4 1.49 uIU/mL (0.32-4.0); Vitamin D 25-OH Total 45.6 ng/mL (>30)
[2023-08-25 14:31] LABS: Folate 7.6 ng/mL (> or = 4.0); Vitamin B12 333 pg/mL (200-900)
== END 2023-08-25 11:54 | disposition home or self-care (01) ==
LOC: HO.HMGCLDS 11:53
PROVIDERS: PCP Internal Medicine; Visit Provider Internal Medicine
DX: E78.00 Pure hypercholesterolemia, unspecified (principal); E55.9 Vitamin D deficiency, unspecified; E11.9 Type 2 diabetes mellitus without complications; I10 Essential (primary) hypertension; I89.0 Lymphedema, not elsewhere classified; R06.00 Dyspnea, unspecified; R20.2 Paresthesia of skin
CPT/HCPCS: 36415; 80053; 80061; 81003; 82043; 82306; 82570; 82607; 82746; 83036; 83880; 84443; 85025

== ENCOUNTER 2023-08-31 10:52 | Outpatient (AMB) | payer BC, SELFPAY ==
[2023-08-31 11:01] VITALS: BP 142/80; PULSE 98; O2SAT 94; BMI 36.1
--- NOTE | 2023-08-31 11:01 | A.OFFPC_ITS ---
Vital Signs 08/31/23 11:01 Height 5 ft 11 in Weight 259 lb BMI 36.1 BP 142/80 H Blood Pressure Location Lt brachial Position Sitting Pulse 98 Pulse Source Pulse Oximeter Pulse Oximetry (%) 94 Oxygen Delivery Method Room Air Intake Visit Reasons: DM, hyperlipidemia, HTN Steward/Stewardess Dining Room Required: No Accompanied by: Self / Same As Patient Allergies penicillin V Allergy (Severe, Verified 08/31/23 11:28) hives Medication List - Last Reconciled 08/31/23 by Joshua Rahman MD amlodipine-benazepril 10-20 mg 1 cap PO DAILY aspirin (Adult Low Dose Aspirin) 81 mg PO DAILY atorvastatin 40 mg PO QPM 90 days cholecalciferol (vitamin D3) 50 mcg PO DAILY 90 days doxepin 25 mg PO BEDTIME PRN 30 days fexofenadine (Radha Allergy) 180 mg PO DAILY PRN furosemide 20 mg PO QAM PRN glipizide 10 mg PO DAILY 90 days hydrochlorothiazide 25 mg PO DAILY 90 days meloxicam 15 mg PO DAILY PRN 90 days metformin 2 tabs in am and 1 tab in pm PO 2 times a day; 90 days mirtazapine 30 mg PO BEDTIME pioglitazone 30 mg PO DAILY 90 days Tobacco use date assessed: 08/31/23 Fall risk assessment: No Falls in past year Last assessed Fall Risk: 08/31/23 Dental Screening Dental Screen Date: 08/31/23 Did you have a dental visit in the last 12 months?: Yes Did you have a dental problem in the last 6 months where you did not have access to dental care?: No Was dental information given to patient?: Patient has dentist HPI DM, hyperlipidemia, HTN HPI Details Patient comes in today for his follow up visit States that he feels okay He denies any headaches or dizziness Denies any chest pains, no increased SOB No nausea/vomiting, no abdominal pain No change in bowel habits noted Still has on and off leg pains - states that his leg pains seem to improve when he is walking but he is often limited by increasing SOB after he walks for a while and he has to stop and rest Would like to try getting Rx for a walker to see if this will help improve his mobility States that he was previously referred to Podiatry at [facility] but was told that they are so backed up that they cannot give him an appoinment yet; would like to get a referral to try seeing another supervisor electronics testing for his toenail fungus Needs a few of his Rx refilled Had his follow up labs done last week - to discuss his results Would also like to get a flu shot here today [facility] Medical History Pain and swelling of right lower leg Obesity (BMI 30-39.9) Anxiety Insomnia Carpal tunnel syndrome, left Pain of left lateral upper thigh Neuropathic pain of both feet Lymphedema of both lower extremities Essential hypertension Controlled diabetes mellitus with diabetic polyneuropathy Cataracts, bilateral Diabetes mellitus Surgical History Pure hypercholesterolemia History of hemorrhoidectomy History of appendectomy Family History Father Lung cancer Mother FH: ovarian cancer Social History Housing: House Alcohol intake: current Alcohol intake frequency: a few times a week Patient Tobacco Use Status: Never used Tobacco e-Cigarette/Vaping Use: Never Used Second Hand Smoke Exposure: Yes service: Yes Current occupational status: retired Cognitive needs: No Hearing needs: No Vision needs: Yes Questionnaire PHQ-9 Over the last 2 weeks, how often have you been bothered by any of the following problems? 1. Little interest or pleasure in doing things: more than half the days 2. Feeling down, depressed, or hopeless: more than half the days 3. Trouble falling or staying asleep, or sleeping too much: more than half the days 4. Feeling tired or having little energy: more than half the days 5. Poor appetite or overeating: more than half the days 6. Feeling bad about yourself - or that you are a failure or have let yourself or your family down: not at all 7. Trouble concentrating on things, such as reading the newspaper or watching television: not at all 8. Moving or speaking so slowly that other people could have noticed. Or the opposite - being so fidgety or restless that you have been moving around a lot more than usual: not at all 9. Thoughts that you would be better off or of hurting yourself in some way: not at all Total score: 10 Depression Screening Interpretation: Positive (states that his mood symptoms have gotten a lot better lately) Depression Screening Follow-up: Existing cond ition and In treatment Depression Screening Done: Yes [id number] - PHQ-9 Billing: Yes Source: Developed by Drs. Vijay Mason, Isabelle Morales, Haris Lopez and colleagues, with an educational yosi from [employer]. Thrive Questionnaire Date Thrive assessed: 08/31/23 I am a: Patient What is your living situation today?: I have a steady place to live Within the past 12 months, did the food you bought not last and you didn't have the money to get more?: Never true Within the past 12 months, did you worry whether your food would run out before you got money to buy more?: Never true Do you have trouble paying for medicines?: No Do you have trouble getting transportation to medical appointments?: No Do you have trouble paying your heating and electricity bill?: No Do you have trouble taking care of your child, family member or friend?: No Do you have trouble with day-to-day activities such as bathing, preparing meals, shopping, managing finances, etc.?: No Are you currently unemployed and looking for a job?: No Are you interested in more education?: No Please select the resources that you would like help with: None Currently or been in a relationship where the following occur: no concerns reported AUDIT C Alcohol Use Questionnaire (AUDIT-C) 1. How often do you have a drink containing alcohol?: Never 3. How often do you have six or more drinks on one occasion?: Never Total Score: 0 Score Reviewed/Action Taken: Yes KIRILL-7 AMB Questionnaire KIRILL-7 Date KIRILL - 7 assessed: 08/31/23 Feeling nervous, anxious, or on edge: 0 = Not at all Not being able to stop or control worryin = Not at all Worrying too much about different things: 0 = Not at all Trouble relaxin = Not at all Being so restless that it is hard to sit still: 0 = Not at all Becoming easily annoyed or irritable: 0 = Not at all Feeling afraid as if something awful might happen: 0 = Not at all Total KIRILL-7 score (0-4 normal; 5-9 mild; 10-14 moderate; 15-21 severe): 0 Source: Developed by Drs. Vijay Mason, Isabelle Morales, Haris Lopez and colleagues, with an educational yosi from [employer]. Review of Systems Const Denies chills, Denies fatigue, Denies fever(s) and Denies headache(s) ENT Denies dysphagia, Denies dizziness, Denies otalgia, Denies headache(s), Denies nasal congestion, Denies neck pain, Denies odynophagia and Denies sore throat Card Denies chest pain and Reports dyspnea on exertion (mild) Resp Denies chest congestion, Denies cough, Denies excessive phlegm production, Reports dyspnea on exertion (mild) and Denies wheezing GI Denies abdominal pain, Denies constipation, Denies dysphagia, Denies heartburn, Denies diarrhea, Denies nausea, Denies odynophagia and Denies vomiting Denies dysuria, Denies nocturia and Reports urinary frequency (mostly during the day and after he drinks his morning coffee) Musc Reports back pain (on and off over the lower back), Reports arthralgias (left hip) and Denies neck pain Skin/Breast Denies rash Neuro Denies dizziness and Denies headache(s) Psych Reports depression (improving) Endo Denies fatigue Nolberto/Lymph Details: frequent swelling of both legs and feet Aller/Immun Denies wheezing Physical exam (Primary Care) Vital Signs: Last Vital Signs Pulse 98 08/31/23 11:01 BP 142/80 H 08/31/23 11:01 Pulse Ox 94 08/31/23 11:01 Oxygen Delivery Method Room Air 08/31/23 11:01 BMI result Body Mass Index 36.1 Tobacco/Smoking Status: Tobacco use Status Tobacco use date assessed 08/31/23 08/31/23 11:07 Patient Tobacco Use Status Never used Tobacco 08/31/23 11:07 e-Cigarette/Vaping Use Never Used 08/31/23 11:07 PHQ-9: PHQ-9 Score PHQ-9: Total score 10 08/31/23 11:33 Depression Screening Interpretation: Positive (states that his mood symptoms have gotten a lot better lately) Depression Screening Follow-up: Existing condition and In treatment Thrive Assessment: Date of Thrive Assessment Date Thrive assessed 08/31/23 08/31/23 11:07 Currently or been in a relationship where the following occur: no concerns reported Const General: no acute distress and alert HENMT Ears: TM's normal bilaterally and EAC's normal Throat: Yes posterior oropharynx normal and Yes tonsils normal (no TP congestion noted) Neck Neck: Yes no lymphadenopathy and Yes supple Resp Auscultation: clear to auscultation bilaterally, no rales and no wheezes Cardio Rate: regular rate Rhythm: regular rhythm Heart sounds: no murmurs GI Palpation (GI): Soft to palpation and nontender Auscultation: normal bowel sounds Back/Spine/Pelvis Thoracic/Lumbar Spine: lumbar spinal tenderness Skin Rashes: no rashes Extrem General: No clubbing, No cyanosis and Yes edema (2+ edema of both legs and feet - currently has compression stockings on) Left lower extremity: hip/thigh Details: tenderness Location: of the hip Office Procedures Flu Questionnaire Does the patient have a severe egg allergy?: No Does the patient have severe life threatening allergies?: No Does the patient have a fever or illness today?: No Has the patient ever had Guillain-Berlin Syndrome?: No Has the patient ever had any past reaction to a flu shot?: No Immunizations flu vacc [id number] 6mos up(PF) 60 mcg(15 mcgx4)/0.5 mL IM syringe Performing Provider: Joshua Rahman MD Performing Location: [facility] Administered by: Sofia Taylor on 08/31/23 11:51 Dose Route Admin Location Dispensed Lot Number Expiration Date [facility] Shipping And Receiving Material Handler 0.5 mL IM Left Deltoid 0.5 mL [id number] 03/25/24 13563-440-58 [employer] VIS Given Date VIS Provided VIS Publication Date 08/31/23 Single Vaccine 21 Eligibility Eligibility Date Funding Source Not [facility] Eligible 08/31/23 Private Results Reviewed Results Reviewed: Laboratory Tests 07/02/20 08/25/23 10:00 12:04 WBC 4.8 5.0 Hgb 13.1 L 13.6 L Hct 42.4 43.7 Plt Count 185 163 Sodium 143 140 Potassium 3.9 4.3 Creatinine 0.95 0.76 Estimated GFR > 60 > 60 Fasting Glucose 164 H Hemoglobin A1c % 6.4 H Calcium 9.6 AST 22 ALT 23 B-Natriuretic Peptide 25 Triglycerides 52 Cholesterol 118 LDL Cholesterol, Calc 60 HDL Cholesterol 48 Vitamin B12 333 25-OH Vitamin D Total 45.6 TSH 1.49 Ur Specific [place] 1.010 Urine Protein Negative Urine Glucose (UA) Negative Urine Blood Negative Microalb/Creat Ratio 59.0 H Assessment and Plan Assessment & Plan (1) Essential hypertension: Code(s): I10 - Essential (primary) hypertension Plan: Reinforced low sodium diet - goal is systolic BP of at least 140 mm or less Continue Amlodipine-Benazepril 10-20 mg QD and HCTZ 25 mg QD Patient instructed to continue monitoring his BP closely (2) Pure hypercholesterolemia: Code(s): E78.00 - Pure hypercholesterolemia, unspecified Plan: Results of his labs done last month reviewed and discussed with patient - advised that his cholesterol levels have increased significantly from last year Patient admits that he has been out of his Atorvastatin for months now; will start him back on Atorvastatin 40 mg QD - Rx refilled Reinforced low cholesterol diet Will recheck his labs and fasting lipids in 4 months for follow up (3) Diabetes mellitus: Code(s): E11.9 - Type 2 diabetes mellitus without complications Qualifiers: Diabetes mellitus type: type 2 Diabetes mellitus adjunct faculty for medical terminology insulin use: without nursing home use Diabetes mellitus complication status: with neurologic complications Diabetes mellitus complication detail: with polyneuropathy Qualified Code(s): E11.42 - Type 2 diabetes mellitus with diabetic polyneuropathy Plan: HgbA1c was at 6.4% on his labs done last week (was at 6.3% a few months ago) - goal is <7.0% Reinforced diabetic diet Continue Glipizide 10 mg QD, Pioglitazone 30 mg QD and Metformin 500 mg BID (4) Lymphedema of both lower extremities: Code(s): I89.0 - Lymphedema, not elsewhere classified Plan: Patient takes Furosemide 20 mg Q AM PRN for edema Reinforced to continue with leg elevation as often as he can and the use of compression stockings PRN to help manage his edema (5) Dyspnea: Code(s): R06.00 - Dyspnea, unspecified Qualifiers: Dyspnea type: dyspnea on exertion Qualified Code(s): R06.09 - Other forms of dyspnea Plan: Mostly exertional and is most likely multifactorial, including due to his weight and physical decompensation States that his dyspnea has gotten slightly better over the past few months (6) Neuropathic pain of both feet: Code(s): G57.93 - Unspecified mononeuropathy of bilateral lower limbs Plan: Mostly due to diabetic neuropathy States that his lower extremity symptoms are mostly tolerable and he still does not require any Rx or intervention at this time Per request, will provide him with Rx for a walker (7) Onychomycosis of toenail: Code(s): B35.1 - Tinea unguium Plan: He was previously referred to Podiatry at [facility] but was told that they are so backed up that they cannot give him an appointment yet He would like to get a referral to try seeing another supervisor electronics testing for his toenail fungus and hopefully be seen sooner - will refer him to Dr. Khan in [place] (8) Insomnia: Code(s): G47.00 - Insomnia, unspecified Qualifiers: Insomnia type: primary Qualified Code(s): F51.01 - Primary insomnia Plan: Sleep hygiene reinforced Mirtazapine was helping with his sleep until last fall; his trouble sleeping has gotten worse since his last fall but it has improved again recently Continue Trazodone 50 mg Q HS PRN; tried some OTC Melatonin previously, which he states did NOT help (9) Anxiety: Code(s): F41.9 - Anxiety disorder, unspecified Plan: Continue Mirtazapine 30 mg Q HS - Rx refilled (10) Obesity (BMI 30-39.9): Code(s): E66.9 - Obesity, unspecified Plan: Reinforced diet/exercise as tolerated/lose weight Plan Flu vaccine given today, per request Follow up in 4 months Orders: Orders Comprehensive Hilbert. Panel Fast 4 Months E78.00 - Pure hypercholesterolemia, unspecified Hemoglobin A1c 4 Months E11.9 - Type 2 diabetes mellitus without complications UA CC w/rflx Micro + Cult 4 Months R30.0 - Dysuria TSH reflex Free T4 4 Months E78.00 - Pure hypercholesterolemia, unspecified Vitamin B12 and Folate 4 Months E53.8 - Deficiency of other specified B group vitamins Complete Blood Count Auto Diff 4 Months I10 - Essential (primary) hypertension Lipid Panel 4 Months E78.00 - Pure hypercholesterolemia, unspecified Microalbumin, Random (w Creat) 4 Months E11.9 - Type 2 diabetes mellitus without complications Vitamin D 25-OH Total 4 Months E55.9 - Vitamin D deficiency, unspecified Influenza [id number] Immunization Today Z23 - Encounter for immunization Referrals Podiatry Referral B35.1 - Tinea unguium Medications: New [LIGHTWEIGHT adjustable height WALKER] As directed 1 ea 0RF G57.93 - Unspecified mononeuropathy of bilateral lower limbs, I89.0 - Lymphedema, not elsewhere classified, M19.90 - Unspecified osteoarthritis, unspecified site [LIGHTWEIGHT adjustable height WALKER] As directed 1 ea 0RF G57.93 - Unspecified mononeuropathy of bilateral lower limbs, I89.0 - Lymphedema, not elsewhere classified, M19.90 - Unspecified osteoarthritis, unspecified site Changed From amlodipine-benazepril 10-20 mg 1 cap PO DAILY 90 caps 1RF To amlodipine-benazepril 10-20 mg 1 cap PO DAILY 90 days 90 caps 1RF Refilled mirtazapine 30 mg PO BEDTIME 90 tabs 1RF F41.9 - Anxiety disorder, unspecified hydrochlorothiazide 25 mg PO DAILY 90 days 90 tabs 1RF Coding Level of Care Code Est Pt Level 4 (38128) Diagnoses Essential hypertension I10 Pure hypercholesterolemia E78.00 Type 2 diabetes mellitus with diabetic polyneuropathy, without long-term current use of insulin E11.42 Diabetes mellitus type: type 2 Diabetes mellitus nursing home insulin use: without nursing home use Diabetes mellitus complication status: with neurologic complications Diabetes mellitus complication detail: with polyneuropathy Lymphedema of both lower extremities I89.0 Dyspnea on exertion R06.09 Dyspnea type: dyspnea on exertion Neuropathic pain of both feet G57.93 Onychomycosis of toenail B35.1 Primary insomnia F51.01 Insomnia type: primary Anxiety F41.9 Obesity (BMI 30-39.9) E66.9
== END 2023-08-31 11:57 | disposition home or self-care (01) ==
PROVIDERS: PCP Internal Medicine; Visit Provider Internal Medicine
DX: E11.42 Type 2 diabetes mellitus with diabetic polyneuropathy (principal); I10 Essential (primary) hypertension; E78.00 Pure hypercholesterolemia, unspecified; Z23 Encounter for immunization; I89.0 Lymphedema, not elsewhere classified; R06.09 Other forms of dyspnea; G57.93 Unspecified mononeuropathy of bilateral lower limbs; B35.1 Tinea unguium; F51.01 Primary insomnia; F41.9 Anxiety disorder, unspecified; E66.9 Obesity, unspecified
CPT/HCPCS: 90471; 90686; 99214

== ENCOUNTER 2024-01-06 11:12 | Outpatient (REF) | payer BC, SELFPAY ==
[2024-01-06 13:32] LABS: MANUAL DIFF FLAG NO
[2024-01-06 13:52] LABS: Basophils Absolute Auto 0.1 X10*3/uL (0.0-0.2); Eosinophils Absolute Auto 0.2 X10*3/uL (0.0-0.4); Eosinophils Percent Auto 3.4 % (0-4); Hematocrit 43.3 % (42.0-52.0); Hemoglobin 13.7 g/dl (14.0-18.0); Imm Gran Abs Auto 0.02 X10*3/uL (0.00-0.03); Imm Gran Pct Auto 0.4 % (0.0-0.4); Mean Corpuscular HGB Conc 31.6 g/dl (31.0-36.0); Mean Corpuscular Hemoglobin 28.5 pg (27.0-33.0); Monocytes Absolute Auto 0.5 X10*3/uL (0.1-1.2); Monocytes Percent Auto 9.7 % (2-11); Neutrophils Absolute Auto 3.3 x10*3/uL (2.0-8.3); Neutrophils Percent Auto 64.5 % (45-73); Platelet Count 161 X10*3/uL (160-400); Red Blood Count 4.81 X10*6/uL (4.60-5.80); Red Cell Distribution Width 15.8 % (11.0-16.0)
[2024-01-06 14:02] LABS: Appearance Urine Clear; Color Urine Yellow; Glucose Urine UA Negative (Negative); Leukocyte Esterase Urine Trace (Negative); Nitrite Urine Negative (Negative); PH 5.5 (5.0-9.0); Specific Gravity - Urine 1.015 (1.005-1.025); UMIC TRIGGER UACC YES; Urine Blood Trace (Negative); Urine Ketones Negative (Negative); Urine Protein Negative (Neg-Trace)
[2024-01-06 14:11] LABS: Bacteria Urine None Seen (None Seen); Hyaline Casts Urine 0-2 /LPF (0-2); Squamous Epithelial Cell Urine 0-2 /HPF (0-2); WBC Urine 0-5 /HPF (0-5)
[2024-01-06 14:25] LABS: Alanine Aminotransferase 22 U/L (0-40); Albumin Level 3.9 g/dL (3.5-5.0); Alkaline Phosphatase 80 U/L (39-117); Anion Gap 12 (12-20); Aspartate Amino Transferase 27 U/L (5-37); Bilirubin Total 0.7 mg/dL (0.0-1.0); Blood Urea Nitrogen 16 mg/dL (9-16); Calcium 9.7 mg/dL (8.4-10.2); Carbon Dioxide 29 mmol/L (22-29); Chloride 104 mmol/L (96-108); Cholesterol 121 mg/dL (<200); Estimated Glomerular Filt Rate > 60; Glucose Fasting 70 mg/dL (60-99); HDL Cholesterol 54 mg/dL (>40); LDL Cholesterol Calculated 58 mg/dL (<100); Sodium 141 mmol/L (135-145); Total Protein 6.9 g/dL (6.5-8.0); Triglycerides 47 mg/dL (<150)
[2024-01-06 14:31] LABS: Estimated Average Glucose 131 mg/dL; Hemoglobin A1C 148.6741 umol/L; Hemoglobin A1c % 6.2 % (<6.0)
[2024-01-06 14:42] LABS: Creatinine Urine 90.09 mg/dL; Microalbum/Creatinine Ratio Ur 43.2 ug/mg cr (<30)
[2024-01-06 14:46] LABS: TSH reflex Free T4 1.47 uIU/mL (0.32-4.0); Vitamin D 25-OH Total 44.4 ng/mL (>30)
[2024-01-06 14:50] LABS: Folate 7.4 ng/mL (> or = 4.0); Vitamin B12 333 pg/mL (200-900)
== END 2024-01-06 11:13 | disposition home or self-care (01) ==
LOC: HO.HMGCLDS 11:12
PROVIDERS: PCP Internal Medicine; Visit Provider Internal Medicine
DX: I10 Essential (primary) hypertension (principal); E53.8 Deficiency of other specified B group vitamins; E78.00 Pure hypercholesterolemia, unspecified; E11.9 Type 2 diabetes mellitus without complications; E55.9 Vitamin D deficiency, unspecified
CPT/HCPCS: 36415; 80053; 80061; 81001; 81003; 82043; 82306; 82570; 82607; 82746; 83036; 84443; 85025

== ENCOUNTER 2024-01-10 12:06 | Outpatient (AMB) | payer BC, SELFPAY ==
--- NOTE | 2024-01-10 12:37 | MHC.PC.OV ---
Vital Signs 01/10/24 12:39 Height 5 ft 11 in Weight 264 lb 8.875 oz BMI 36.9 BP 140/60 H Blood Pressure Location Lt brachial Position Sitting Pulse 92 Pulse Source Pulse Oximeter Pulse Oximetry (%) 97 Oxygen Delivery Method Room Air Intake Visit Reasons: DM, HTN, hyperlipidemia, OA Intake Note: Patient is here to follow up on DM, HTN, HLD, OA. Regular Senior Care Provider Required: No Bus Washer: Not Required per policy Accompanied by: Self / Same As Patient Allergies penicillin V Allergy (Severe, Verified 01/10/24 12:57) hives Medication List - Last Reconciled 01/10/24 by Joshua Rahman MD amlodipine-benazepril 10-20 mg 1 cap PO DAILY 90 days aspirin (Adult Low Dose Aspirin) 81 mg PO DAILY atorvastatin 40 mg PO QPM 90 days cholecalciferol (vitamin D3) 50 mcg PO DAILY 90 days doxepin 25 mg PO BEDTIME PRN 30 days fexofenadine (Radha Allergy) 180 mg PO DAILY PRN furosemide 20 mg PO QAM PRN glipizide 10 mg PO DAILY 90 days hydrochlorothiazide 25 mg PO DAILY 90 days [LIGHTWEIGHT adjustable height WALKER As directed] meloxicam 15 mg PO DAILY PRN 90 days metformin 2 tabs in am and 1 tab in pm PO 2 times a day; 90 days mirtazapine 30 mg PO BEDTIME pioglitazone 30 mg PO DAILY 90 days Tobacco use date assessed: 01/10/24 Fall risk assessment: No Falls in past year Last assessed Fall Risk: 01/10/24 Dental Screening Dental Screen Date: 01/10/24 Did you have a dental visit in the last 12 months?: Yes Did you have a dental problem in the last 6 months where you did not have access to dental care?: No Was dental information given to patient?: Patient has dentist HPI DM, HTN, hyperlipidemia, OA HPI Details Patient comes in today for his follow up visit States that he feels okay He denies any headaches or dizziness Denies any chest pains, no increased SOB No nausea/vomiting, no abdominal pain No change in bowel habits noted Had his follow up labs done a few days ago - to discuss his results [facility] Medical History Pain and swelling of right lower leg Obesity (BMI 30-39.9) Anxiety Insomnia Carpal tunnel syndrome, left Pain of left lateral upper thigh Neuropathic pain of both feet Lymphedema of both lower extremities Essential hypertension Controlled diabetes mellitus with diabetic polyneuropathy Cataracts, bilateral Diabetes mellitus Surgical History Pure hypercholesterolemia History of hemorrhoidectomy History of appendectomy Family History Father Lung cancer Mother FH: ovarian cancer Social History Housing: House Alcohol intake: current Alcohol intake frequency: a few times a week Patient Tobacco Use Status: Never used Tobacco e-Cigarette/Vaping Use: Never Used Second Hand Smoke Exposure: Yes service: Yes Current occupational status: retired Cognitive needs: No Hearing needs: No Vision needs: Yes Questionnaire PHQ-9 Over the last 2 weeks, how often have you been bothered by any of the following problems? 1. Little interest or pleasure in doing things: not at all 2. Feeling down, depressed, or hopeless: not at all 3. Trouble falling or staying asleep, or sleeping too much: not at all 4. Feeling tired or having little energy: not at all 5. Poor appetite or overeating: not at all 6. Feeling bad about yourself - or that you are a failure or have let yourself or your family down: not at all 7. Trouble concentrating on things, such as reading the newspaper or watching television: not at all 8. Moving or speaking so slowly that other people could have noticed. Or the opposite - being so fidgety or restless that you have been moving around a lot more than usual: not at all 9. Thoughts that you would be better off or of hurting yourself in some way: not at all Total score: 0 Depression Screening Interpretation: Negative Depression Screening Done: Yes [id number] - PHQ-9 Billing: Yes Source: Developed by Drs. Vijay Msaon, Isabelle Morales, Haris Lopez and colleagues, with an educational yosi from [employer]. Thrive Questionnaire Date Thrive assessed: 01/10/24 I am a: Patient What is your living situation today?: I have a steady place to live Within the past 12 months, did the food you bought not last and you didn't have the money to get more?: Never true Within the past 12 months, did you worry whether your food would run out before you got money to buy more?: Never true Do you have trouble paying for medicines?: No Do you have trouble getting transportation to medical appointments?: No Do you have trouble paying your heating and electricity bill?: No Do you have trouble taking care of your child, family member or friend?: No Do you have trouble with day-to-day activities such as bathing, preparing meals, shopping, managing finances, etc.?: No Are you currently unemployed and looking for a job?: No Are you interested in more education?: No Currently or been in a relationship where the following occur: no concerns reported THRIVE Score: 0 AUDIT C Alcohol Use Questionnaire (AUDIT-C) 1. How often do you have a drink containing alcohol?: 2-4 times a month 3. How often do you have six or more drinks on one occasion?: Never Total Score: 2 Score Reviewed/Action Taken: Yes KIRILL-7 AMB Questionnaire KIRILL-7 Date KIRILL - 7 assessed: 01/10/24 Feeling nervous, anxious, or on edge: 0 = Not at all Not being able to stop or control worryin = Not at all Worrying too much about different things: 0 = Not at all Trouble relaxin = Not at all Being so restless that it is hard to sit still: 0 = Not at all Becoming easily annoyed or irritable: 0 = Not at all Feeling afraid as if something awful might happen: 0 = Not at all Total KIRILL-7 score (0-4 normal; 5-9 mild; 10-14 moderate; 15-21 severe): 0 Source: Developed by Drs. Vijay Mason, Isabelle Morales, Haris Lopez and colleagues, with an educational yosi from [employer]. Review of Systems Const Denies chills, Denies fatigue, Denies fever(s) and Denies headache(s) ENT Denies dysphagia, Denies dizziness, Denies otalgia, Denies headache(s), Denies neck pain, Denies odynophagia and Denies sore throat Card Denies chest pain and Reports dyspnea on exertion (mild) Resp Denies cough, Reports dyspnea on exertion (mild) and Denies wheezing GI Denies abdominal pain, Denies constipation, Denies dysphagia, Denies heartburn, Denies diarrhea, Denies nausea, Denies odynophagia and Denies vomiting Denies dysuria, Denies nocturia and Reports urinary frequency (mostly during the day and after he drinks his morning coffee) Musc Reports back pain (on and off over the lower back), Reports arthralgias (left hip) and Denies neck pain Skin/Breast Denies rash Neuro Denies dizziness and Denies headache(s) Psych Reports depression (improving) Endo Denies fatigue Nolberto/Lymph Details: frequent swelling of both legs and feet Aller/Immun Denies wheezing Physical exam (Primary Care) Vital Signs: Last Vital Signs Pulse 92 01/10/24 12:39 BP 140/60 H 01/10/24 12:39 Pulse Ox 97 01/10/24 12:39 Oxygen Delivery Method Room Air 01/10/24 12:39 BMI result Body Mass Index 36.9 Tobacco/Smoking Status: Tobacco use Status Tobacco use date assessed 01/10/24 01/10/24 12:44 Patient Tobacco Use Status Never used Tobacco 01/10/24 12:44 e-Cigarette/Vaping Use Never Used 01/10/24 12:44 PHQ-9: PHQ-9 Score PHQ-9: Total score 0 01/10/24 12:44 Depression Screening Interpretation: Negative Thrive Assessment: Date of Thrive Assessment Date Thrive assessed 01/10/24 01/10/24 12:44 Currently or been in a relationship where the following occur: no concerns reported Const General: no acute distress and alert HENMT Ears: TM's normal bilaterally and EAC's normal Throat: Yes posterior oropharynx normal and Yes tonsils normal (no TP congestion noted) Neck Neck: Yes no lymphadenopathy and Yes supple Resp Auscultation: clear to auscultation bilaterally, no rales and no wheezes Cardio Rate: regular rate Rhythm: regular rhythm Heart sounds: no murmurs GI Palpation (GI): Soft to palpation and nontender Auscultation: normal bowel sounds Back/Spine/Pelvis Thoracic/Lumbar Spine: lumbar spinal tenderness Skin Rashes: no rashes Extrem General: No clubbing, No cyanosis and Yes edema (2+ edema of both legs and feet - currently has compression stockings on) Left lower extremity: hip/thigh Details: tenderness Location: of the hip Results Reviewed Results Reviewed: Laboratory Tests 07/02/20 01/06/24 10:00 11:16 WBC 4.8 5.0 Hgb 13.1 L 13.7 L Hct 42.4 43.3 Plt Count 185 161 Sodium 143 141 Potassium 3.9 4.0 Creatinine 0.95 0.81 Estimated GFR > 60 > 60 Fasting Glucose 70 Hemoglobin A1c % 6.2 H Calcium 9.7 AST 27 ALT 22 Triglycerides 47 Cholesterol 121 LDL Cholesterol, Calc 58 HDL Cholesterol 54 Vitamin B12 333 25-OH Vitamin D Total 44.4 TSH 1.47 Ur Specific [place] 1.015 Urine Protein Negative Urine Glucose (UA) Negative Urine Blood Trace H Urine Nitrite Negative Ur Leukocyte Esterase Trace H Microalb/Creat Ratio 43.2 H Assessment and Plan Assessment & Plan (1) Essential hypertension: Code(s): I10 - Essential (primary) hypertension Plan: Reinforced low sodium diet - goal is systolic BP of at least 140 mm or less Continue Amlodipine-Benazepril 10-20 mg QD and HCTZ 25 mg QD Patient is reminded to continue monitoring his BP closely (2) Pure hypercholesterolemia: Code(s): E78.00 - Pure hypercholesterolemia, unspecified Plan: Results of his labs done a few days ago reviewed and discussed with patient Continue Atorvastatin 40 mg QD Reinforced low cholesterol diet Will recheck his labs and fasting lipids in 4 months for follow up (3) Diabetes mellitus: Code(s): E11.9 - Type 2 diabetes mellitus without complications Qualifiers: Diabetes mellitus type: type 2 Diabetes mellitus nursing home insulin use: without nursing home use Diabetes mellitus complication status: with neurologic complications Diabetes mellitus complication detail: with polyneuropathy Qualified Code(s): E11.42 - Type 2 diabetes mellitus with diabetic polyneuropathy Plan: HgbA1c was at 6.2% on his labs done a few days ago (was at 6.4% a few months ago) - goal is <7.0% Reinforced diabetic diet Continue Glipizide 10 mg QD, Pioglitazone 30 mg QD and Metformin 500 mg BID (4) Lymphedema of both lower extremities: Code(s): I89.0 - Lymphedema, not elsewhere classified Plan: Patient takes Furosemide 20 mg Q AM PRN for edema He is reinforced to continue with leg elevation as often as he can and the use of compression stockings PRN to help manage his edema (5) Dyspnea: Code(s): R06.00 - Dyspnea, unspecified Qualifiers: Dyspnea type: dyspnea on exertion Qualified Code(s): R06.09 - Other forms of dyspnea Plan: Improving - this is mostly exertional and most likely multifactorial, including due to his weight and physical decompensation States that his dyspnea has gotten slightly better over the past few months (6) Neuropathic pain of both feet: Code(s): G57.93 - Unspecified mononeuropathy of bilateral lower limbs Plan: Mostly due to diabetic neuropathy States that his lower extremity symptoms are mostly tolerable and he still does not require any Rx or intervention at this time He was previously provided with Rx for a walker (7) Onychomycosis of toenail: Code(s): B35.1 - Tinea unguium Plan: Follow up with podiatry as scheduled States that he was started on some Rx for his toenail fungus and was advised to make sure he has his LFTs checked recently - Rx is likely oral Tebinafine (8) Insomnia: Code(s): G47.00 - Insomnia, unspecified Qualifiers: Insomnia type: primary Qualified Code(s): F51.01 - Primary insomnia Plan: Sleep hygiene reinforced Mirtazapine was helping with his sleep until last fall; his trouble sleeping has gotten worse since his last fall but it has improved again recently Continue Trazodone 50 mg Q HS PRN; tried some OTC Melatonin previously, which he states did NOT help (9) Anxiety: Code(s): F41.9 - Anxiety disorder, unspecified Plan: Continue Mirtazapine 30 mg Q HS (10) Obesity (BMI 30-39.9): Code(s): E66.9 - Obesity, unspecified Plan: Reinforced diet/exercise as tolerated/lose weight Plan Follow up in 4 months Orders: Orders Comprehensive [place]. Panel Fast 4 Months E78.00 - Pure hypercholesterolemia, unspecified TSH reflex Free T4 4 Months E78.00 - Pure hypercholesterolemia, unspecified UA CC w/rflx Micro + Cult 4 Months R30.0 - Dysuria Microalbumin, Random (w Creat) 4 Months E11.9 - Type 2 diabetes mellitus without complications Vitamin D 25-OH Total 4 Months E55.9 - Vitamin D deficiency, unspecified B Type Natriuretic Peptide 4 Months I89.0 - Lymphedema, not elsewhere classified Complete Blood Count Auto Diff 4 Months D64.9 - Anemia, unspecified Lipid Panel 4 Months E78.00 - Pure hypercholesterolemia, unspecified Hemoglobin A1c 4 Months E11.9 - Type 2 diabetes mellitus without complications Coding Level of Care Code Est Pt Level 4 (02867) Diagnoses Essential hypertension I10 Pure hypercholesterolemia E78.00 Type 2 diabetes mellitus with diabetic polyneuropathy, without long-term current use of insulin E11.42 Diabetes mellitus type: type 2 Diabetes mellitus ad terminal makeup operator insulin use: without ad terminal makeup operator use Diabetes mellitus complication status: with neurologic complications Diabetes mellitus complication detail: with polyneuropathy Lymphedema of both lower extremities I89.0 Dyspnea on exertion R06.09 Dyspnea type: dyspnea on exertion Neuropathic pain of both feet G57.93 Onychomycosis of toenail B35.1 Primary insomnia F51.01 Insomnia type: primary Anxiety F41.9 Obesity (BMI 30-39.9) E66.9
[2024-01-10 12:39] VITALS: BP 140/60; PULSE 92; O2SAT 97; BMI 36.9
== END 2024-01-10 13:19 | disposition home or self-care (01) ==
PROVIDERS: PCP Internal Medicine; Visit Provider Internal Medicine
DX: I10 Essential (primary) hypertension (principal); E11.42 Type 2 diabetes mellitus with diabetic polyneuropathy; E78.00 Pure hypercholesterolemia, unspecified; I89.0 Lymphedema, not elsewhere classified; R06.09 Other forms of dyspnea; G57.93 Unspecified mononeuropathy of bilateral lower limbs; B35.1 Tinea unguium; F51.01 Primary insomnia; F41.9 Anxiety disorder, unspecified
CPT/HCPCS: 99214

== ENCOUNTER 2024-03-15 11:12 | Outpatient (REF) | payer BC, SELFPAY ==
[2024-03-15 13:57] LABS: Alanine Aminotransferase 29 U/L (0-40); Alkaline Phosphatase 89 U/L (39-117); Aspartate Amino Transferase 28 U/L (5-37); Bilirubin Direct 0.2 mg/dL (0.0-0.5); Bilirubin Total 0.5 mg/dL (0.0-1.0); Total Protein 6.6 g/dL (6.5-8.0)
== END 2024-03-15 11:13 | disposition home or self-care (01) ==
LOC: HO.HMGCLDS 11:12
PROVIDERS: PCP Internal Medicine; Visit Provider Podiatrist Foot Surgery
DX: B35.1 Tinea unguium (principal)
CPT/HCPCS: 36415; 80076

== ENCOUNTER 2024-05-30 12:24 | Outpatient (AMB) | payer BC, SELFPAY ==
[2024-05-30 12:32] VITALS: BP 132/64; PULSE 88; O2SAT 95; BMI 34.8
--- NOTE | 2024-05-30 12:32 | A.OFFPC_ITS ---
Vital Signs 05/30/24 12:32 Height 5 ft 11 in Weight 249 lb 6 oz BMI 34.8 BP 132/64 Blood Pressure Location Lt brachial Position Sitting Pulse 88 Pulse Source Pulse Oximeter Pulse Oximetry (%) 95 Oxygen Delivery Method Room Air Intake Visit Reasons: HTN, hyperlipidemia, edema, DM Experimental Display Builder Required: No Accompanied by: Self / Same As Patient Allergies penicillin V Allergy (Severe, Verified 05/30/24 12:44) hives Medication List - Last Reconciled 05/30/24 by Joshua Rahman MD amlodipine-benazepril 10-20 mg 1 cap PO DAILY 90 days aspirin (Adult Low Dose Aspirin) 81 mg PO DAILY atorvastatin 40 mg PO QPM 90 days cholecalciferol (vitamin D3) 50 mcg PO DAILY 90 days doxepin 25 mg PO BEDTIME PRN 30 days fexofenadine (Radha Allergy) 180 mg PO DAILY PRN furosemide 20 mg PO QAM PRN glipizide 10 mg PO DAILY 90 days hydrochlorothiazide 25 mg PO DAILY 90 days [LIGHTWEIGHT adjustable height WALKER As directed] meloxicam 15 mg PO DAILY PRN 90 days metformin 2 tabs in am and 1 tab in pm PO 2 times a day; 90 days mirtazapine 30 mg PO BEDTIME pioglitazone 30 mg PO DAILY 90 days Tobacco use date assessed: 05/30/24 Fall risk assessment: No Falls in past year Last assessed Fall Risk: 05/30/24 Dental Screening Dental Screen Date: 05/30/24 Did you have a dental visit in the last 12 months?: Yes Did you have a dental problem in the last 6 months where you did not have access to dental care?: No Was dental information given to patient?: Patient has dentist HPI HTN, hyperlipidemia, edema, DM HPI Details Patient comes in today for his follow up visit States that he feels okay He denies any headaches or dizziness Denies any chest pains, no increased SOB No nausea/vomiting, no abdominal pain No change in bowel habits noted Needs several of his Rx refilled He was not able to get his follow up labs done prior to his visit today - states that he just simply forgot to get them done PFSH Medical History Pain and swelling of right lower leg Obesity (BMI 30-39.9) Anxiety Insomnia Carpal tunnel syndrome, left Pain of left lateral upper thigh Neuropathic pain of both feet Lymphedema of both lower extremities Essential hypertension Controlled diabetes mellitus with diabetic polyneuropathy Cataracts, bilateral Diabetes mellitus Surgical History Pure hypercholesterolemia History of hemorrhoidectomy History of appendectomy Family History Father Lung cancer Mother FH: ovarian cancer Social History Housing: House Alcohol intake: current Alcohol intake frequency: a few times a week Patient Tobacco Use Status: Never used Tobacco e-Cigarette/Vaping Use: Never Used Second Hand Smoke Exposure: Yes service: Yes Current occupational status: retired Cognitive needs: No Hearing needs: No Vision needs: Yes Questionnaire PHQ-9 Over the last 2 weeks, how often have you been bothered by any of the following problems? 1. Little interest or pleasure in doing things: not at all 2. Feeling down, depressed, or hopeless: not at all 3. Trouble falling or staying asleep, or sleeping too much: not at all 4. Feeling tired or having little energy: not at all 5. Poor appetite or overeating: not at all 6. Feeling bad about yourself - or that you are a failure or have let yourself or your family down: not at all 7. Trouble concentrating on things, such as reading the newspaper or watching television: not at all 8. Moving or speaking so slowly that other people could have noticed. Or the opposite - being so fidgety or restless that you have been moving around a lot more than usual: not at all 9. Thoughts that you would be better off or of hurting yourself in some way: not at all Total score: 0 Depression Screening Interpretation: Negative Depression Screening Done: Yes 95015 - PHQ-9 Billing: Yes Source: Developed by Drs. Vijay Mason, Isabelle Morales, Haris Lopez and colleagues, with an educational yosi from [employer]. Thrive Questionnaire Date Thrive assessed: 05/30/24 I am a: Patient What is your living situation today?: I have a steady place to live Within the past 12 months, did the food you bought not last and you didn't have the money to get more?: Never true Within the past 12 months, did you worry whether your food would run out before you got money to buy more?: Never true Do you have trouble paying for medicines?: No Do you have trouble getting transportation to medical appointments?: No Do you have trouble paying your heating and electricity bill?: No Do you have trouble taking care of your child, family member or friend?: No Do you have trouble with day-to-day activities such as bathing, preparing meals, shopping, managing finances, etc.?: No Are you currently unemployed and looking for a job?: No Are you interested in more education?: No Please select the resources that you would like help with: None Currently or been in a relationship where the following occur: No concerns reported THRIVE Score: 0 AUDIT C Alcohol Use Questionnaire (AUDIT-C) 1. How often do you have a drink containing alcohol?: 2-4 times a month 3. How often do you have six or more drinks on one occasion?: Never Total Score: 2 Score Reviewed/Action Taken: Yes KIRILL-7 AMB Questionnaire KIRILL-7 Date KIRILL - 7 assessed: 05/30/24 Feeling nervous, anxious, or on edge: 0 = Not at all Not being able to stop or control worryin = Not at all Worrying too much about different things: 0 = Not at all Trouble relaxin = Not at all Being so restless that it is hard to sit still: 0 = Not at all Becoming easily annoyed or irritable: 0 = Not at all Feeling afraid as if something awful might happen: 0 = Not at all Total KIRILL-7 score (0-4 normal; 5-9 mild; 10-14 moderate; 15-21 severe): 0 Source: Developed by Drs. Vijay Mason, Isabelle Morales, Haris Lopez and colleagues, with an educational yosi from [employer]. Review of Systems Const Denies chills, Reports difficulty sleeping (recently), Denies fatigue, Denies fever(s) and Denies headache(s) ENT Denies dysphagia, Denies dizziness, Denies otalgia, Denies headache(s), Denies neck pain, Denies odynophagia and Denies sore throat Card Denies chest pain and Reports dyspnea on exertion (mild) Resp Denies cough, Reports dyspnea on exertion (mild) and Denies wheezing GI Denies abdominal pain, Denies constipation, Denies dysphagia, Denies heartburn, Denies diarrhea, Denies nausea, Denies odynophagia and Denies vomiting Denies dysuria, Denies nocturia and Reports urinary frequency (mostly during the day and after he drinks his morning coffee) Musc Reports back pain (on and off over the lower back), Reports arthralgias (left hip) and Denies neck pain Skin/Breast Denies rash Neuro Denies dizziness and Denies headache(s) Psych Reports depression (improving) Endo Denies fatigue Nolberto/Lymph Details: frequent swelling of both legs and feet Aller/Immun Denies wheezing Physical exam (Primary Care) Vital Signs: Last Vital Signs Pulse 88 05/30/24 12:32 BP 132/64 05/30/24 12:32 Pulse Ox 95 05/30/24 12:32 Oxygen Delivery Method Room Air 05/30/24 12:32 BMI result Body Mass Index 34.8 Tobacco/Smoking Status: Tobacco use Status Tobacco use date assessed 05/30/24 05/30/24 12:33 Patient Tobacco Use Status Never used Tobacco 05/30/24 12:33 e-Cigarette/Vaping Use Never Used 05/30/24 12:33 PHQ-9: PHQ-9 Score PHQ-9: Total score 0 05/30/24 12:46 Depression Screening Interpretation: Negative Thrive Assessment: Date of Thrive Assessment Date Thrive assessed 05/30/24 05/30/24 12:33 Currently or been in a relationship where the following occur: No concerns reported Const General: no acute distress and alert HENMT Ears: TM's normal bilaterally and EAC's normal Throat: Yes posterior oropharynx normal and Yes tonsils normal (no TP congestion noted) Neck Neck: Yes no lymphadenopathy and Yes supple Thyroid: Thyroid normal Resp Auscultation: clear to auscultation bilaterally, no rales and no wheezes Cardio Rate: regular rate Rhythm: regular rhythm Heart sounds: no murmurs GI Palpation (GI): Soft to palpation and nontender Auscultation: normal bowel sounds Back/Spine/Pelvis Thoracic/Lumbar Spine: lumbar spinal tenderness Skin Rashes: no rashes Extrem General: No clubbing, No cyanosis and Yes edema (2+ edema of both legs and feet - currently has compression stockings on) Left lower extremity: hip/thigh Details: tenderness Location: of the hip Results AMB Hemoglobin A1c AMB Hemoglobin A1c 6.3 % Last Edit by ALISON Lake on 05/30/24 12 :49 Assessment and Plan Assessment & Plan (1) Essential hypertension: Code(s): I10 - Essential (primary) hypertension Plan: Reinforced low sodium diet - goal is systolic BP of at least 140 mm or less Continue Amlodipine-Benazepril 10-20 mg QD and HCTZ 25 mg QD Patient is reminded to continue monitoring his BP closely (2) Pure hypercholesterolemia: Code(s): E78.00 - Pure hypercholesterolemia, unspecified Plan: He was not able to get his previously ordered labs done prior to his visit today Continue Atorvastatin 40 mg QD Reinforced low cholesterol diet As his previous lab results were all well within normal range (well-controlled), will have him skip his labs this time and just have him recheck his labs and fasting lipids in 4 months for follow up - he can just use his current orders (updated) for his next lab draw in a few months (3) Diabetes mellitus: Code(s): E11.9 - Type 2 diabetes mellitus without complications Qualifiers: Diabetes mellitus complication detail: with polyneuropathy Diabetes mellitus complication status: with neurologic complications Diabetes mellitus termite treater insulin use: without termite treater use Diabetes mellitus type: type 2 Qualified Code(s): E11.42 - Type 2 diabetes mellitus with diabetic polyneuropathy Plan: His in-office HgbA1c today is at 6.3% (HgbA1c was at 6.2% a few months ago) - goal is <7.0% Reinforced diabetic diet Continue Glipizide 10 mg QD, Pioglitazone 30 mg QD and Metformin 500 mg BID (4) Lymphedema of both lower extremities: Code(s): I89.0 - Lymphedema, not elsewhere classified Plan: Patient takes Furosemide 20 mg Q AM PRN for edema He is reinforced to continue with leg elevation as often as he can and the use of compression stockings PRN to help manage his edema (5) Dyspnea: Code(s): R06.00 - Dyspnea, unspecified Qualifiers: Dyspnea type: dyspnea on exertion Qualified Code(s): R06.09 - Other forms of dyspnea Plan: Improving - this is mostly exertional and most likely multifactorial, including due to his weight and physical decompensation States that his dyspnea has slowly gotten slightly better over the past few months (6) Neuropathic pain of both feet: Code(s): G57.93 - Unspecified mononeuropathy of bilateral lower limbs Plan: Mostly due to diabetic neuropathy States that his lower extremity symptoms are mostly tolerable and he still does not require any Rx or intervention at this time He was previously provided with Rx for a walker (7) Onychomycosis of toenail: Code(s): B35.1 - Tinea unguium Plan: Follow up with podiatry as scheduled States that he was started on some Rx for his toenail fungus and was advised to make sure he has his LFTs checked recently - Rx is likely oral Tebinafine (8) Insomnia: Code(s): G47.00 - Insomnia, unspecified Qualifiers: Insomnia type: primary Qualified Code(s): F51.01 - Primary insomnia Plan: Sleep hygiene reinforced Mirtazapine was helping with his sleep until last fall; his trouble sleeping has gotten worse since his last fall but it has improved again recently and he eventually stopped taking this on his own He was also on Trazodone 50 mg Q HS PRN previously but he stopped taking this on his own as well Relates that he is starting to experience some trouble sleeping at night again and would like to know what he should do at this time but prefers not to go back on his meds if he can avoid taking them Have advised him to try taking OTC Melatonin for now (9) Anxiety: Code(s): F41.9 - Anxiety disorder, unspecified Plan: He was on Mirtazapine 30 mg Q HS previously but he stopped this on his own a few months ago - states that his mood and anxiety have not gotten any worse since (10) Obesity (BMI 30-39.9): Code(s): E66.9 - Obesity, unspecified Plan: Reinforced diet/exercise as tolerated/lose weight - he has been able to lose a lot of weight on his own over the past few months Plan Follow up in 4 months Orders: Orders AMB Hemoglobin A1c Today Z13.9 - Encounter for screening, unspecified Medications: Refilled glipizide 10 mg PO DAILY 90 days 90 tabs 3RF metformin 2 tabs in am and 1 tab in pm PO 2 times a day; 90 days 270 tabs 3RF E11.9 - Type 2 diabetes mellitus without complications atorvastatin 40 mg PO QPM 90 days 90 tabs 3RF hydrochlorothiazide 25 mg PO DAILY 90 days 90 tabs 3RF amlodipine-benazepril 10-20 mg 1 cap PO DAILY 90 days 90 caps 3RF Coding Level of Care Code Est Pt Level 4 (86967) Complex EM visit Add On G2211 Diagnoses Essential hypertension I10 Pure hypercholesterolemia E78.00 Type 2 diabetes mellitus with diabetic polyneuropathy, without long-term current use of insulin E11.42 Diabetes mellitus complication detail: with polyneuropathy Diabetes mellitus complication status: with neurologic complications Diabetes mellitus termite treater insulin use: without senior living use Diabetes mellitus type: type 2 Lymphedema of both lower extremities I89.0 Dyspnea on exertion R06.09 Dyspnea type: dyspnea on exertion Neuropathic pain of both feet G57.93 Onychomycosis of toenail B35.1 Primary insomnia F51.01 Insomnia type: primary Anxiety F41.9 Obesity (BMI 30-39.9) E66.9
== END 2024-05-30 13:07 | disposition home or self-care (01) ==
PROVIDERS: PCP Internal Medicine; Visit Provider Internal Medicine
DX: I10 Essential (primary) hypertension (principal); E78.00 Pure hypercholesterolemia, unspecified; E11.42 Type 2 diabetes mellitus with diabetic polyneuropathy; I89.0 Lymphedema, not elsewhere classified; R06.09 Other forms of dyspnea; G57.93 Unspecified mononeuropathy of bilateral lower limbs; B35.1 Tinea unguium; F51.01 Primary insomnia; F41.9 Anxiety disorder, unspecified; E66.9 Obesity, unspecified
CPT/HCPCS: 83036; 99214

== ENCOUNTER 2024-09-10 09:51 | Outpatient (REF) | payer BC, SELFPAY ==
[2024-09-10 13:23] LABS: Appearance Urine Clear; Color Urine Yellow; Glucose Urine UA Negative (Negative); Leukocyte Esterase Urine Negative (Negative); Nitrite Urine Negative (Negative); PH 7.5 (5.0-9.0); Specific Gravity - Urine 1.015 (1.005-1.025); UMIC TRIGGER UACC YES; Urine Blood Small (1+) (Negative); Urine Ketones Negative (Negative); Urine Protein Negative (Neg-Trace)
[2024-09-10 13:29] LABS: Bacteria Urine None Seen (None Seen); Hyaline Casts Urine 0-2 /LPF (0-2); Squamous Epithelial Cell Urine 0-2 /HPF (0-2); WBC Urine 0-5 /HPF (0-5)
[2024-09-10 13:34] LABS: MANUAL DIFF FLAG NO
[2024-09-10 13:42] LABS: B Type Natriuretic Peptide 14 pg/mL (<100)
[2024-09-10 13:46] LABS: Basophils Absolute Auto 0.1 X10*3/uL (0.0-0.2); Basophils Percent Auto 1.8 % (0-2); Eosinophils Absolute Auto 0.3 X10*3/uL (0.0-0.4); Eosinophils Percent Auto 5.5 % (0-4); Hematocrit 40.8 % (42.0-52.0); Hemoglobin 13.3 g/dl (14.0-18.0); Imm Gran Abs Auto 0.02 X10*3/uL (0.00-0.03); Imm Gran Pct Auto 0.4 % (0.0-0.4); Lymphocytes Absolute Auto 0.7 X10*3/uL (1.2-4.9); Lymphocytes Percent Auto 13.1 % (20-40); Mean Corpuscular HGB Conc 32.6 g/dl (31.0-36.0); Mean Corpuscular Hemoglobin 29.7 pg (27.0-33.0); Mean Corpuscular Volume 91.1 fL (80.0-98.0); Mean Platelet Volume 11.5 fL (9.4-12.4); Monocytes Absolute Auto 0.5 X10*3/uL (0.1-1.2); Monocytes Percent Auto 10.4 % (2-11); Neutrophils Absolute Auto 3.5 x10*3/uL (2.0-8.3); Neutrophils Percent Auto 68.8 % (45-73); Platelet Count 165 X10*3/uL (160-400); Red Blood Count 4.48 X10*6/uL (4.60-5.80); Red Cell Distribution Width 14.4 % (11.0-16.0); White Blood Count 5.1 X10*3/uL (4.8-10.8)
[2024-09-10 13:52] LABS: Creatinine Urine 73.53 mg/dL; Microalbum/Creatinine Ratio Ur 57.1 ug/mg cr (<30)
[2024-09-10 14:29] LABS: Estimated Average Glucose 126 mg/dL; Hemoglobin A1C 141.3086 umol/L; Total Hemoglobin (HGBA1C) 3359.9889 umol/L
[2024-09-10 14:34] LABS: Alanine Aminotransferase 20 U/L (0-40); Albumin Level 3.8 g/dL (3.5-5.0); Alkaline Phosphatase 89 U/L (39-117); Anion Gap 9 (12-20); Aspartate Amino Transferase 24 U/L (5-37); Bilirubin Total 0.7 mg/dL (0.0-1.0); Blood Urea Nitrogen 13 mg/dL (9-16); Calcium 9.1 mg/dL (8.4-10.2); Carbon Dioxide 31 mmol/L (22-29); Chloride 103 mmol/L (96-108); Cholesterol 132 mg/dL (<200); Estimated Glomerular Filt Rate > 60; Glucose Fasting 111 mg/dL (60-99); HDL Cholesterol 56 mg/dL (>40); LDL Cholesterol Calculated 67 mg/dL (<100); Potassium 3.8 mmol/L (3.3-5.1); Sodium 139 mmol/L (135-145); TSH reflex Free T4 1.39 uIU/mL (0.32-4.0); Total Protein 6.5 g/dL (6.5-8.0); Triglycerides 47 mg/dL (<150); Vitamin D 25-OH Total 39.1 ng/mL (>30)
== END 2024-09-10 09:52 | disposition home or self-care (01) ==
LOC: HO.HMGCLDS 09:51
PROVIDERS: PCP Internal Medicine; Visit Provider Internal Medicine
DX: I89.0 Lymphedema, not elsewhere classified (principal); E78.00 Pure hypercholesterolemia, unspecified; D64.9 Anemia, unspecified; E11.9 Type 2 diabetes mellitus without complications; E55.9 Vitamin D deficiency, unspecified
CPT/HCPCS: 36415; 80053; 80061; 81001; 82043; 82306; 82570; 83036; 83880; 84443; 85025

== ENCOUNTER 2024-10-02 10:31 | Outpatient (AMB) | payer BC, SELFPAY ==
[2024-10-02 10:43] VITALS: BP 142/76; PULSE 99; TEMP 36.6; O2SAT 93; BMI 35.4
--- NOTE | 2024-10-02 10:43 | MHC.PC.OV ---
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 Accompanied by: Self / Same As Patient Allergies penicillin V Allergy (Severe, Verified 10/02/24 11:10) hives Medication List - Last Reconciled 10/02/24 by MICHAEL Henning amlodipine-benazepril 10-20 mg 1 cap PO DAILY 90 days aspirin (Adult Low Dose Aspirin) 81 mg PO DAILY atorvastatin 40 mg PO QPM 90 days cholecalciferol (vitamin D3) 50 mcg PO DAILY 90 days fexofenadine (Yulissa Allergy) 180 mg PO DAILY PRN furosemide 20 mg PO QAM PRN glipizide 10 mg PO DAILY 90 days hydrochlorothiazide 25 mg PO DAILY 90 days [LIGHTWEIGHT adjustable height WALKER As directed] metformin 2 tabs in am and 1 tab in pm PO 2 times a day; 90 days pioglitazone 30 mg PO DAILY 90 days Tobacco use date assessed: 10/02/24 Fall risk assessment: No Falls in past year Last assessed Fall Risk: 10/02/24 Dental Screening Dental Screen Date: 10/02/24 Did you have a dental visit in the last 12 months?: Yes Did you have a dental problem in the last 6 months where you did not have access to dental care?: No Was dental information given to patient?: Patient has dentist HPI HTN, DM, hyperlipidemia, OA, lymphedema HPI Details The patient is a 79-year-old male with significant past medical history of lymphedema of both lower extremities, essential hypertension, hypercholesterolemia, diabetes, anxiety and insomnia The patient is presenting today for a follow up appointment Labs reviewed with the patient He reports the a couple of months ago, he started coughing infrequently without production Lately, he noticed that each time he cough, he is bringing up phlegm He endorses nasal congestion, infrequent sneezing, denies fevers and chills He reported that he does have a history of seasonal allergies-reports that he has yulissa and saline nasal spray at home He reports that he does not usually have these symptoms in the winter months The patient wants to know what he should be doing at this time to relief his symptoms The patient reports chronic dyspnea with exertion that resolves with rest He denies chest pain, heart palpitation and dizziness [facility] Medical History Pain and swelling of right lower leg Obesity (BMI 30-39.9) Anxiety Insomnia Carpal tunnel syndrome, left Pain of left lateral upper thigh Neuropathic pain of both feet Lymphedema of both lower extremities Essential hypertension Controlled diabetes mellitus with diabetic polyneuropathy Cataracts, bilateral Diabetes mellitus Surgical History Pure hypercholesterolemia History of hemorrhoidectomy History of appendectomy Family History Father Lung cancer Mother FH: ovarian cancer Social History Housing: House Alcohol intake: current Alcohol intake frequency: a few times a week Patient Tobacco Use Status: Never used Tobacco e-Cigarette/Vaping Use: Never Used Second Hand Smoke Exposure: Yes service: Yes Current occupational status: retired Cognitive needs: No Hearing needs: No Vision needs: Yes Questionnaire PHQ-9 Over the last 2 weeks, how often have you been bothered by any of the following problems? 1. Little interest or pleasure in doing things: not at all 2. Feeling down, depressed, or hopeless: not at all 3. Trouble falling or staying asleep, or sleeping too much: not at all 4. Feeling tired or having little energy: not at all 5. Poor appetite or overeating: not at all 6. Feeling bad about yourself - or that you are a failure or have let yourself or your family down: not at all 7. Trouble concentrating on things, such as reading the newspaper or watching television: not at all 8. Moving or speaking so slowly that other people could have noticed. Or the opposite - being so fidgety or restless that you have been moving around a lot more than usual: not at all 9. Thoughts that you would be better off or of hurting yourself in some way: not at all Total score: 0 Depression Screening Interpretation: Negative Depression Screening Done: Yes 24985 - PHQ-9 Billing: Yes Source: Developed by Drs. Vijay Mason, Isabelle Morales, Haris Lopez and colleagues, with an educational yosi from [employer]. Thrive Questionnaire Date Thrive assessed: 10/02/24 I am a: Patient What is your living situation today?: I have a steady place to live Within the past 12 months, did the food you bought not last and you didn't have the money to get more?: Never true Within the past 12 months, did you worry whether your food would run out before you got money to buy more?: Never true Do you have trouble paying for medicines?: No Do you have trouble getting transportation to medical appointments?: No Do you have trouble paying your heating and electricity bill?: No Do you have trouble taking care of your child, family member or friend?: No Do you have trouble with day-to-day activities such as bathing, preparing meals, shopping, managing finances, etc.?: No Are you currently unemployed and looking for a job?: No Are you interested in more education?: No Please select the resources that you would like help with: None Currently or been in a relationship where the following occur: No concerns reported THRIVE Score: 0 AUDIT C Alcohol Use Questionnaire (AUDIT-C) 1. How often do you have a drink containing alcohol?: 2-4 times a month 2. How many drinks containing alcohol do you have on a typical day when you are drinking?: 1 or 2 3. How often do you have six or more drinks on one occasion?: Never Total Score: 2 Score Reviewed/Action Taken: Yes KIRILL-7 AMB Questionnaire KIRILL-7 Date KIRILL - 7 assessed: 10/02/24 Feeling nervous, anxious, or on edge: 0 = Not at all Not being able to stop or control worryin = Not at all Worrying too much about different things: 0 = Not at all Trouble relaxin = Not at all Being so restless that it is hard to sit still: 0 = Not at all Becoming easily annoyed or irritable: 0 = Not at all Feeling afraid as if something awful might happen: 0 = Not at all Total KIRILL-7 score (0-4 normal; 5-9 mild; 10-14 moderate; 15-21 severe): 0 Source: Developed by Drs. Vijay Mason, Isabelle Morales, Haris Lopez and colleagues, with an educational yosi from [employer]. KIRILL-7 Assessment Billing KIRILL-7 Assessment Tool: KIRILL-7 Assessment 61993 Review of Systems Const Details: Const Denies chills, Denies fatigue, Denies fever(s), Denies headache(s) and Denies weakness ENT Denies dizziness and Denies headache(s) Card Denies chest pain, Denies lightheadedness, Denies dyspnea and Denies other (Palpitations) Resp reports recurrent cough(productive phlegm), reports chronic dyspnea with exertion, Denies wheezing GI Denies abdominal pain, Denies melena, Denies hematochezia, Denies change in bowel habits, Denies dyspepsia and Denies nausea Denies hematuria and Denies dysuria Musc Denies abnormal gait, Denies myalgias, Denies arthralgias, Denies numbness and Denies tingling Skin/Breast Denies rash, Denies unusual bruising and Denies wounds Neuro Denies abnormal gait, Denies dizziness, Denies headache(s), Denies memory loss, Denies numbness, Denies Sensory deficit (Neuro), Denies tingling and Denies weakness Psych Denies anxiety, Denies depression, Denies memory loss Endo Denies cold intolerance, Denies fatigue, Denies heat intolerance, Denies polydipsia and Denies polyuria Aller/Immun Denies wheezing Physical exam (Primary Care) Vital Signs: Last Vital Signs Temp 97.9 F 10/02/24 10:43 Pulse 99 10/02/24 10:43 BP 128/62 10/02/24 11:26 Pulse Ox 93 10/02/24 10:43 Oxygen Delivery Method Room Air 10/02/24 10:43 BMI result Body Mass Index 35.4 Tobacco/Smoking Status: Tobacco use Status Tobacco use date assessed 10/02/24 10/02/24 10:45 Patient Tobacco Use Status Never used Tobacco 10/02/24 10:45 e-Cigarette/Vaping Use Never Used 10/02/24 10:45 PHQ-9: PHQ-9 Score PHQ-9: Total score 0 10/02/24 20:42 Depression Screening Interpretation: Negative Thrive Assessment: Date of Thrive Assessment Date Thrive assessed 10/02/24 10/02/24 10:45 Currently or been in a relationship where the following occur: No concerns reported Const Other: General: no acute distress and well developed Nutritional Appearance: well nourished Orientation/consciousness: patient oriented x3 [facility] Head: Yes normocephalic and Yes atraumatic, bilateral nostrils pink, turbinates normal appearing bilaterally, pharynx with erythemia, exudate, no cobblestones noted Eyes General: appearance normal, both eyes and all related structures Pupils: Equal, round and reactive pupils present EOM: EOMs intact bilaterally Resp Effort & Inspection: normal respiratory effort Auscultation: clear to auscultation bilaterally Cardio Rate: regular rate Rhythm: regular rhythm Heart sounds: S1 normal heart sound present, S2 normal heart sound present, no gallops, no murmurs and no rubs GI Palpation (GI): No Abdominal aortic bruit present, Soft to palpation, nontender, No hepatosplenomegaly present and No Rebound tenderness present Auscultation: normal bowel sounds General: Yes no CVA tenderness Back/Spine/Pelvis Back: no CVA tenderness Cervical Spine: cervical ROM normal and No Cervical spine tenderness Thoracic/Lumbar Spine: thoraco-lumbar ROM normal, No pain with thoraco-lumbar ROM, No thoracic spinal tenderness and No lumbar spinal tenderness Extrem General: +3 pitting edema in bilaterally lower extremities, No calf tenderness Skin General: warm and dry. Normal skin color. Normal skin turgor Lesions: no lesions Rashes: no rashes Trauma: no lacerations or abrasions Wounds: no wounds Nails: normal Neuro General: patient oriented x3, gait normal and no focal neuro deficit Cranial nerves: Yes Equal, round and reactive pupils present Cognition (Neuro): normal cognition Gait exam (Neuro): Normal gait present Sensory Exam: No Sensory deficit (Neuro) Psych Appearance: grossly normal Affect: normal affect Attitude: cooperative Thought process: Normal thought process present Results Reviewed Results Reviewed: Laboratory Tests 09/10/24 09/10/24 10:28 10:38 WBC 5.1 RBC 4.48 L Hgb 13.3 L Hct 40.8 L Plt Count 165 Sodium 139 Potassium 3.8 Chloride 103 Carbon Dioxide 31 H BUN 13 Creatinine 0.81 Estimated GFR > 60 Fasting Glucose 111 H Hemoglobin A1c % 6.0 AST 24 ALT 20 B-Natriuretic Peptide 14 Triglycerides 47 Cholesterol 132 LDL Cholesterol, Calc 67 HDL Cholesterol 56 25-OH Vitamin D Total 39.1 TSH 1.39 Urine Color Yellow Urine Appearance Clear Urine pH 7.5 Ur Specific [place] 1.015 Urine Protein Negative Urine Glucose (UA) Negative Urine Ketones Negative Urine Nitrite Negative Ur Leukocyte Esterase Negative Urine WBC 0-5 Ur Squamous Epith Cells 0-2 Hyaline Casts 0-2 Urine Creatinine 73.53 Urine Microalbumin 42.0 Microalb/Creat Ratio 57.1 H Coding Level of Care Code Est Pt Level 4 (01311) Diagnoses Pure hypercholesterolemia E78.00 Essential hypertension I10 Controlled type 2 diabetes mellitus with diabetic polyneuropathy, without long-term current use of insulin E11.42 Diabetes mellitus half-way insulin use: without half-way use Diabetes mellitus type: type 2 Lymphedema of both lower extremities I89.0 Seasonal allergic reaction J30.2 Primary insomnia F51.01 Insomnia type: primary Anxiety F41.9 Obesity (BMI 30-39.9) E66.9 Additional Codes KIRILL-7 Assessment Billing - KIRILL-7 Assessment Tool: KIRILL-7 Assessment 50379 ([id number]) PHQ-9 - 76761 - PHQ-9 Billing: Yes ([id number]) Assessment & Plan Assessment & Plan (1) Pure hypercholesterolemia: Code(s): E78.00 - Pure hypercholesterolemia, unspecified Category: Surgical Plan: Lipid levels within goal, continue atorvastatin 40 mg at HS We will recheck labs in 4 months (2) Essential hypertension: Code(s): I10 - Essential (primary) hypertension Category: Medical Plan: Reinforced dash diet continue amlodipine-benazepril 10-20 mg daily, hydrochlorothiazide 25 mg daily Monitor blood pressure (3) Controlled diabetes mellitus with diabetic polyneuropathy: Code(s): E11.42 - Type 2 diabetes mellitus with diabetic polyneuropathy Category: Medical Qualifiers: Diabetes mellitus half-way insulin use: without extermination inspector use Diabetes mellitus type: type 2 Qualified Code(s): E11.42 - Type 2 diabetes mellitus with diabetic polyneuropathy Plan: HgbA1c was at 6.0% on his recent labs continue glipizide 10 mg daily, pioglitazone 30 mg daily, metformin 2 tabs in the morning in 1 tab at HS Reinforced dietary restriction Monitor blood sugar (4) Lymphedema of both lower extremities: Code(s): I89.0 - Lymphedema, not elsewhere classified Category: Medical Plan: continue furosemide 20mg and hydrochlorothiazide 25 mg daily Elevate legs when can and continue pressure stockings (5) Seasonal allergic reaction: Code(s): J30.2 - Other seasonal allergic rhinitis Category: Medical Plan: encouraged yulissa and otc nasal nose spray otc (6) Insomnia: Code(s): G47.00 - Insomnia, unspecified Category: Medical Qualifiers: Insomnia type: primary Qualified Code(s): F51.01 - Primary insomnia Plan: Reports that he is coping without medication at this point reinforced sleep hygiene (7) Anxiety: Code(s): F41.9 - Anxiety disorder, unspecified Category: Medical Plan: stable, reports that he as been coping well denies si/hi (8) Obesity (BMI 30-39.9): Code(s): E66.9 - Obesity, unspecified Category: Medical Plan: Reinforced a diet low in cholesterol and physical activity as tolerated Plan Follow up in 4 months Orders: Orders Complete Blood Count Auto Diff 4 Months I89.0 - Lymphedema, not elsewhere classified, I10 - Essential (primary) hypertension, E78.00 - Pure hypercholesterolemia, unspecified, E11.42 - Type 2 diabetes mellitus with diabetic polyneuropathy Microalbumin, Random (w Creat) 4 Months I89.0 - Lymphedema, not elsewhere classified, I10 - Essential (primary) hypertension, E78.00 - Pure hypercholesterolemia, unspecified, E11.42 - Type 2 diabetes mellitus with diabetic polyneuropathy Vitamin D 25-OH Total 4 Months I89.0 - Lymphedema, not elsewhere classified, I10 - Essential (primary) hypertension, E78.00 - Pure hypercholesterolemia, unspecified, E11.42 - Type 2 diabetes mellitus with diabetic polyneuropathy Comprehensive [place]. Panel Fast 4 Months I89.0 - Lymphedema, not elsewhere classified, I10 - Essential (primary) hypertension, E78.00 - Pure hypercholesterolemia, unspecified, E11.42 - Type 2 diabetes mellitus with diabetic polyneuropathy Hemoglobin A1c 4 Months I89.0 - Lymphedema, not elsewhere classified, I10 - Essential (primary) hypertension, E78.00 - Pure hypercholesterolemia, unspecified, E11.42 - Type 2 diabetes mellitus with diabetic polyneuropathy Lipid Panel 4 Months I89.0 - Lymphedema, not elsewhere classified, I10 - Essential (primary) hypertension, E78.00 - Pure hypercholesterolemia, unspecified, E11.42 - Type 2 diabetes mellitus with diabetic polyneuropathy UA CC w/rflx Micro + Cult 4 Months I89.0 - Lymphedema, not elsewhere classified, I10 - Essential (primary) hypertension, E78.00 - Pure hypercholesterolemia, unspecified, E11.42 - Type 2 diabetes mellitus with diabetic polyneuropathy TSH reflex Free T4 4 Months I89.0 - Lymphedema, not elsewhere classified, I10 - Essential (primary) hypertension, E78.00 - Pure hypercholesterolemia, unspecified, E11.42 - Type 2 diabetes mellitus with diabetic polyneuropathy
[2024-10-02 11:26] VITALS: BP 128/62
== END 2024-10-02 11:35 | disposition home or self-care (01) ==
PROVIDERS: PCP Internal Medicine
DX: E78.00 Pure hypercholesterolemia, unspecified (principal); E11.42 Type 2 diabetes mellitus with diabetic polyneuropathy; E66.9 Obesity, unspecified; Z68.35 Body mass index [BMI] 35.0-35.9, adult; I10 Essential (primary) hypertension; I89.0 Lymphedema, not elsewhere classified; J30.2 Other seasonal allergic rhinitis; F51.01 Primary insomnia; F41.9 Anxiety disorder, unspecified

== ENCOUNTER → 2024-10-02 10:31 | Outpatient (BNVA) | payer BC, SELFPAY | PROVIDERS: PCP Internal Medicine | DX: E78.00 Pure hypercholesterolemia, unspecified (principal); I10 Essential (primary) hypertension; E11.42 Type 2 diabetes mellitus with diabetic polyneuropathy; I89.0 Lymphedema, not elsewhere classified; J30.2 Other seasonal allergic rhinitis; F51.01 Primary insomnia; F41.9 Anxiety disorder, unspecified; E66.9 Obesity, unspecified; Z68.35 Body mass index [BMI] 35.0-35.9, adult; Z79.899 Other long term (current) drug therapy | CPT/HCPCS: 96127 ==

== ENCOUNTER 2025-01-14 17:22 | Outpatient (AMB) | payer BC, SELFPAY ==
--- NOTE | 2025-01-14 17:29 | A.OFFPC_ITS ---
Vital Signs 01/14/25 17:33 Height 5 ft 11 in Weight 260 lb BMI 36.3 BP 164/68 H Blood Pressure Location Lt brachial Position Sitting Pulse 95 Pulse Source Pulse Oximeter Temp 97.1 F Temp Source Temporal Artery Scan Pulse Oximetry (%) 97 Oxygen Delivery Method Room Air Intake Visit Reasons: wheezing, cough with phlegm Allergies penicillin V Allergy (Severe, Verified 10/02/24 11:10) hives Medication List - Last Reconciled 01/14/25 by Rj Scales MD amlodipine-benazepril 10-20 mg 1 cap PO DAILY 90 days aspirin (Adult Low Dose Aspirin) 81 mg PO DAILY atorvastatin 40 mg PO QPM 90 days azithromycin (Zithromax) For 250 mg dose pack: take 500 mg today (day 1), then 250 mg for 4 days (days 2-5) PO cholecalciferol (vitamin D3) 50 mcg PO DAILY 90 days fexofenadine (Radha Allergy) 180 mg PO DAILY PRN furosemide 20 mg PO QAM PRN glipizide 10 mg PO DAILY 90 days hydrochlorothiazide 25 mg PO DAILY 90 days [LIGHTWEIGHT adjustable height WALKER As directed] metformin 2 tabs in am and 1 tab in pm PO 2 times a day; 90 days pioglitazone 30 mg PO DAILY 90 days prednisone 4 tabs QD x 2 days then 3 tabs QD x 2 days then 2 tabs Qd x 2 days then 1 tab QD x 2 days PO daily; Tobacco use date assessed: 10/02/24 Dental Screening Dental Screen Date: 10/02/24 [facility] Medical History (Updated 01/14/25 @ 17:49 by Rj Scales MD) Myocardial infarction Pain and swelling of right lower leg Obesity (BMI 30-39.9) Anxiety Insomnia Carpal tunnel syndrome, left Pain of left lateral upper thigh Neuropathic pain of both feet Lymphedema of both lower extremities Essential hypertension Controlled diabetes mellitus with diabetic polyneuropathy Cataracts, bilateral Diabetes mellitus Surgical History Pure hypercholesterolemia History of hemorrhoidectomy History of appendectomy Family History Father Lung cancer Mother FH: ovarian cancer Social History Housing: House Alcohol intake: current Alcohol intake frequency: a few times a week Patient Tobacco Use Status: Never used Tobacco e-Cigarette/Vaping Use: Never Used Second Hand Smoke Exposure: Yes service: Yes Current occupational status: retired Cognitive needs: No Hearing needs: No Vision needs: Yes Questionnaire PHQ-9 Over the last 2 weeks, how often have you been bothered by any of the following problems? 1. Little interest or pleasure in doing things: not at all 2. Feeling down, depressed, or hopeless: not at all 3. Trouble falling or staying asleep, or sleeping too much: not at all 4. Feeling tired or having little energy: not at all 5. Poor appetite or overeating: not at all 6. Feeling bad about yourself - or that you are a failure or have let yourself or your family down: not at all 7. Trouble concentrating on things, such as reading the newspaper or watching television: not at all 8. Moving or speaking so slowly that other people could have noticed. Or the opposite - being so fidgety or restless that you have been moving around a lot more than usual: not at all 9. Thoughts that you would be better off or of hurting yourself in some way: not at all Total score: 0 Depression Screening Interpretation: Negative Depression Screening Done: Yes 16788 - PHQ-9 Billing: Yes Source: Developed by Drs. Vijay Mason, Isabelle Morales, Haris Lopez and colleagues, with an educational yosi from [employer]. Thrive Questionnaire Date Thrive assessed: 10/02/24 KIRILL-7 AMB Questionnaire KIRILL-7 Date KIRILL - 7 assessed: 10/02/24 Source: Developed by Drs. Vijay Mason, Isabelle Morales, Haris Lopez and colleagues, with an educational yosi from [employer]. Physical exam (Primary Care) Vital Signs: Last Vital Signs Temp 97.1 F 01/14/25 17:33 Pulse 95 01/14/25 17:33 BP 164/68 H 01/14/25 17:33 Pulse Ox 97 01/14/25 17:33 Oxygen Delivery Method Room Air 01/14/25 17:33 BMI result Body Mass Index 36.3 Tobacco/Smoking Status: Tobacco use Status Tobacco use date assessed 10/02/24 01/14/25 17:31 Patient Tobacco Use Status Never used Tobacco 01/14/25 17:31 e-Cigarette/Vaping Use Never Used 01/14/25 17:31 PHQ-9: PHQ-9 Score PHQ-9: Total score 0 01/14/25 17:41 Depression Screening Interpretation: Negative Thrive Assessment: Date of Thrive Assessment Date Thrive assessed 10/02/24 01/14/25 17:31 Const General: alert; No acute distress Eyes Conjunctivae: conjunctivae normal Chest Other: basal crackles and wheezing Resp Auscultation: clear to auscultation bilaterally Cardio Rate: regular rate Rhythm: regular rhythm GI Inspection: Yes normal to inspection Extrem General: Yes normal to inspection and No edema Results AMB Hemoglobin A1c AMB Hemoglobin A1c 5.5 % Last Edit by ALISON Rhodes on 01/14/25 18:0 1 Coding Level of Care Code Est Pt Level 4 (32787) Complex EM visit Add On G2211 Diagnoses Controlled type 2 diabetes mellitus with diabetic polyneuropathy, without long- term current use of insulin E11.42 Diabetes mellitus type: type 2 Diabetes mellitus prison insulin use: without prison use Pure hypercholesterolemia E78.00 Essential hypertension I10 Obesity (BMI 30-39.9) E66.9 Anemia D64.9 Pneumonia J18.9 Additional Codes PHQ-9 - 83512 - PHQ-9 Billing: Yes ([id number]) Assessment & Plan Assessment & Plan (1) Controlled diabetes mellitus with diabetic polyneuropathy: Code(s): E11.42 - Type 2 diabetes mellitus with diabetic polyneuropathy Category: Medical Qualifiers: Diabetes mellitus type: type 2 Diabetes mellitus termite inspector insulin use: without termite inspector use Qualified Code(s): E11.42 - Type 2 diabetes mellitus with diabetic polyneuropathy Plan: Decrease the amount of carbohydrate intake, pasta, bread, rice and potatoes are all sugar and that is aside from all the sweet stuff, remember that fruits are good but they are Sweet also. Patient on glipizide 10 mg once a day metformin 1000 mg in the morning 500 kg in the evening and pioglitazone 30 mg once a day (2) Pure hypercholesterolemia: Code(s): E78.00 - Pure hypercholesterolemia, unspecified Category: Surgical Plan: Avoid fried foods, chicken skin, eggs, butter margarine, pastries and meat. Be it pork or beef they have a lot of cholesterol on atorvastatin 40 mg once a day August last blood work (3) Essential hypertension: Code(s): I10 - Essential (primary) hypertension Category: Medical Plan: Continue with blood pressure medication. Decrease salt intake and exercise on amlodipine/benazepril 10/20 mg once a day hydrochlorothiazide 25 mg once a day. Blood pressure is a little bit elevated today. (4) Obesity (BMI 30-39.9): Code(s): E66.9 - Obesity, unspecified Category: Medical Plan: Diet and exercise (5) Anemia: Code(s): D64.9 - Anemia, unspecified Category: Medical Plan: Chronic and stable and will continue to monitor (6) Pneumonia: Code(s): J18.9 - Pneumonia, unspecified organism Category: Medical Plan: Discussed concerns about pneumonia and antibiotics sent as well as a request for chest x-ray. Ventolin inhaler sent and given directions on how to use this. Prescription for steroid sent in but advised to hold off unless very short of breath. Discussed concerns on history of heart attack 2019. Concern on Congestive heart failure. Plan History of Present Illness The patient is a 79-year-old male presenting with a cough and wheezing. The cough began approximately four days prior, described as persistent and disruptive to sleep, without a previous history of asthma. He mentions productive cough at times and a concurrent sore throat. In prior similar instances, treatment with a Z-Damion was effective after a second dose. He experienced lightheadedness during coughing, and initial self-attribution was to recent allergies due to weather changes. There is no fever reported, and he recalls past wheezing episodes with differential diagnoses of pneumonia or congestive heart failure, notably with a heart attack history over 25 years ago. The patient has well-managed diabetes, hypercholesterolemia, and hypertension, with recent lab results in August 2024 indicating good control over blood glucose and lipid levels. He also has a history of anemia. Treatment includes oral hypoglycemics and antihypertensives, and prior wheezing episodes garnered consideration of congestive heart failure or pneumonia, with supportive treatment via antibiotics. Health Maintenance - Blood glucose management with a history of HbA1c at 6.0 (August 2024). - Lipid management with LDL at 67 (August 2024). - Blood pressure management recorded at higher than usual levels during the visit. - Diabetes management with glipizide, metformin, and pioglitazone. - Hypercholesterolemia managed with atorvastatin 40 mg daily. - Hypertension managed with amlodipine/benazepril 10/20 mg daily and hydrochlorothiazide 25 mg daily. Social History - No specific social determinants discussed. Review of Systems - Respiratory: Reports cough, wheezing, and sore throat. - Sleep: Reports disrupted sleep due to cough. - General: Denies fever. Physical Exam - Respiratory- Wheezing and crackles noted in lungs bilaterally. Results - Labs: HbA1c of 6.0, LDL of 67. - Previous lab showing mild anemia. - Previous echocardiograms and stress tests done over five years ago. Plan The patient exhibits symptoms suggestive of a respiratory infection, such as pneumonia. Zithromax is prescribed again due to prior positive response, along with an inhaler to manage wheezing. A chest x-ray will aid distinguishing pneumonia from congestive heart failure. Alongside ongoing chronic condition m anagement, caution against elevated blood pressures is advised, considering results might be stress-induced. As a precaution, a steroid was pre-ordered for severe progression but advised against immediate use. A follow-up is necessitated post-x-ray to refine treatment. Patient was informed and verbally consented to the use of an ambient scribe for clinic note documentation during this visit. Discussion Notes We discussed the likelihood of a bacterial respiratory infection such as pneumonia, based on clinical findings of wheezing and crackles. I recommended a chest x-ray to evaluate for pneumonia versus congestive heart failure, highlighting the risks associated with the patient's diabetes and cardiovascular history. The risks and benefits of the Zithromax antibiotic and the rescue inha ler were detailed, with specific instructions for inhaler use. While steroids could exacerbate diabetes, they are pre-ordered with the caveat of avoidance unless expressly required. Follow-up care hinges on diagnostic imaging results to dictate if further medication is needed, reinforcing the patient's understanding of scenarios warranting urgent re-evaluation. Patient Instructions - Take the Z-Damion (Zithromax) as prescribed. - Use the inhaler as instructed, with two puffs as needed up to four times a day. - Have a chest x-ray completed as soon as possible. - Monitor your conditions and report if breathing difficulties increase. - Continue with your prescribed diabetes, cholesterol, and blood pressure medications. - Follow up for lab results and further directions. - Only use the steroid prescription if discussed and recommended explicitly. - Rest and stay hydrated, avoiding known triggers of your symptoms. Orders: Orders AMB Hemoglobin A1c Today E11.42 - Type 2 diabetes mellitus with diabetic polyneuropathy Medications: New azithromycin (Zithromax) For 250 mg dose pack: take 500 mg today (day 1), then 250 mg for 4 days (days 2-5) PO 6 tabs 0RF prednisone 4 tabs QD x 2 days then 3 tabs QD x 2 days then 2 tabs Qd x 2 days then 1 tab QD x 2 days PO daily; 20 tabs 0RF J45.909 - Unspecified asthma, uncomplicated
[2025-01-14 17:33] VITALS: BP 164/68; PULSE 95; TEMP 36.2; O2SAT 97; BMI 36.3
== END 2025-01-14 17:59 | disposition home or self-care (01) ==
LOC: HO.HMCH 17:23
PROVIDERS: PCP Internal Medicine; Visit Provider Internal Medicine
DX: E11.42 Type 2 diabetes mellitus with diabetic polyneuropathy (principal); E78.00 Pure hypercholesterolemia, unspecified; Z68.36 Body mass index [BMI] 36.0-36.9, adult; E66.9 Obesity, unspecified; I10 Essential (primary) hypertension; D64.9 Anemia, unspecified; J18.9 Pneumonia, unspecified organism

== ENCOUNTER → 2025-01-14 17:22 | Outpatient (BNVA) | payer BC, SELFPAY | PROVIDERS: PCP Internal Medicine; Visit Provider Internal Medicine | DX: E11.42 Type 2 diabetes mellitus with diabetic polyneuropathy (principal); E78.00 Pure hypercholesterolemia, unspecified; I10 Essential (primary) hypertension; E66.9 Obesity, unspecified; Z68.36 Body mass index [BMI] 36.0-36.9, adult; D64.9 Anemia, unspecified; J18.9 Pneumonia, unspecified organism; Z79.84 Long term (current) use of oral hypoglycemic drugs; Z79.899 Other long term (current) drug therapy | CPT/HCPCS: 83036; 96127 ==

== ENCOUNTER 2025-01-16 12:34 | Outpatient (REF) | payer BC, SELFPAY ==
--- NOTE | ~2025-01-16 | XR_ITS ---
EXAMINATION: XR CHEST CLINICAL INFORMATION: J98.8 - Other specified respiratory disorders COMPARISON: March 16, 2017. TECHNIQUE: 2 views of the chest were obtained. FINDINGS: Poor inspiration. Linear opacities left lower hemithorax. No consolidation, pleural effusion or pneumothorax. Cardiomediastinal silhouette size is normal. Calcified plaque thoracic aortic arch. Multilevel thoracic and upper lumbar spondylosis. XR/XR chest 2V IMPRESSION: Subsegmental atelectasis versus scarring, lingula/left lung base. Stable chest. Electronically signed by: Beto Lucio MD 01/18/2025 09:01 AM EDT
== END 2025-01-16 12:35 | disposition home or self-care (01) ==
LOC: HO.HMGCX 12:34
PROVIDERS: PCP Internal Medicine; Visit Provider Internal Medicine
DX: J98.8 Other specified respiratory disorders (principal)
CPT/HCPCS: 71046

== ENCOUNTER → 2025-01-16 12:40 | Outpatient (BNV) | payer BC, SELFPAY | PROVIDERS: PCP Internal Medicine; Visit Provider Radiology Diagnostic Radiology | DX: J98.8 Other specified respiratory disorders (principal) | CPT/HCPCS: 71046 ==

== ENCOUNTER 2025-01-28 10:38 | Outpatient (REF) | payer BC, SELFPAY ==
[2025-01-28 13:17] LABS: MANUAL DIFF FLAG NO
[2025-01-28 13:31] LABS: Basophils Absolute Auto 0.1 X10*3/uL (0.0-0.2); Basophils Percent Auto 2.3 % (0-2); Eosinophils Absolute Auto 0.3 X10*3/uL (0.0-0.4); Hematocrit 41.6 % (42.0-52.0); Hemoglobin 13.2 g/dl (14.0-18.0); Imm Gran Abs Auto 0.04 X10*3/uL (0.00-0.03); Imm Gran Pct Auto 0.8 % (0.0-0.4); Lymphocytes Absolute Auto 0.9 X10*3/uL (1.2-4.9); Lymphocytes Percent Auto 17.6 % (20-40); Mean Corpuscular HGB Conc 31.7 g/dl (31.0-36.0); Mean Corpuscular Hemoglobin 28.4 pg (27.0-33.0); Mean Corpuscular Volume 89.7 fL (80.0-98.0); Monocytes Absolute Auto 0.5 X10*3/uL (0.1-1.2); Monocytes Percent Auto 9.8 % (2-11); Neutrophils Absolute Auto 3.4 x10*3/uL (2.0-8.3); Neutrophils Percent Auto 64.5 % (45-73); Platelet Count 173 X10*3/uL (160-400); Red Blood Count 4.64 X10*6/uL (4.60-5.80); Red Cell Distribution Width 15.1 % (11.0-16.0); White Blood Count 5.2 X10*3/uL (4.8-10.8)
[2025-01-28 13:33] LABS: Estimated Average Glucose 131 mg/dL; Hemoglobin A1C 150.0848 umol/L; Hemoglobin A1c % 6.2 % (<6.0); Total Hemoglobin (HGBA1C) 3421.0677 umol/L
[2025-01-28 13:35] LABS: Appearance Urine Clear; Color Urine Yellow; Glucose Urine UA Negative (Negative); Leukocyte Esterase Urine Negative (Negative); Nitrite Urine Negative (Negative); PH >= 9.0 (5.0-9.0); Urine Blood Negative (Negative); Urine Ketones Negative (Negative); Urine Protein Negative (Neg-Trace)
[2025-01-28 13:58] LABS: Alanine Aminotransferase 18 U/L (0-40); Albumin Level 3.8 g/dL (3.5-5.0); Alkaline Phosphatase 85 U/L (39-117); Anion Gap 11 (12-20); Aspartate Amino Transferase 24 U/L (5-37); Bilirubin Total 0.6 mg/dL (0.0-1.0); Blood Urea Nitrogen 13 mg/dL (9-16); Calcium 9.1 mg/dL (8.4-10.2); Carbon Dioxide 28 mmol/L (22-29); Chloride 102 mmol/L (96-108); Cholesterol 129 mg/dL (<200); Creatinine Urine 48.71 mg/dL; Estimated Glomerular Filt Rate > 60; Glucose Fasting 114 mg/dL (60-99); Potassium 3.9 mmol/L (3.3-5.1); Sodium 137 mmol/L (135-145); Total Protein 6.4 g/dL (6.5-8.0); Triglycerides 53 mg/dL (<150)
[2025-01-28 14:08] LABS: TSH reflex Free T4 1.23 uIU/mL (0.32-4.0); Vitamin D 25-OH Total 50.1 ng/mL (>30)
[2025-01-28 14:14] LABS: HDL Cholesterol 59 mg/dL (>40); LDL Cholesterol Calculated 60 mg/dL (<100)
== END 2025-01-28 10:39 | disposition home or self-care (01) ==
LOC: HO.HMGCLDS 10:38
PROVIDERS: PCP Internal Medicine
DX: I89.0 Lymphedema, not elsewhere classified (principal); I10 Essential (primary) hypertension; E78.00 Pure hypercholesterolemia, unspecified; E11.42 Type 2 diabetes mellitus with diabetic polyneuropathy
CPT/HCPCS: 36415; 80053; 80061; 81003; 82043; 82306; 82570; 83036; 84443; 85025

== ENCOUNTER 2025-01-30 10:26 | Outpatient (AMB) | payer BC, SELFPAY ==
[2025-01-30 10:28] VITALS: BP 162/70; PULSE 111; RESP 24; TEMP 36.4; O2SAT 97; BMI 35.4
--- NOTE | 2025-01-30 10:28 | A.OFFPC_ITS ---
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 Accompanied by: Self / Same As Patient Allergies penicillin V Allergy (Severe, Verified 01/30/25 10:49) hives Medication List - Last Reconciled 01/30/25 by MICHAEL Henning albuterol sulfate 90 mcg/actuation (Ventolin HFA) 2 puffs inhalation Q6H PRN 30 days amlodipine-benazepril 10-20 mg 1 cap PO DAILY 90 days aspirin (Adult Low Dose Aspirin) 81 mg PO DAILY atorvastatin 40 mg PO QPM 90 days cholecalciferol (vitamin D3) 50 mcg PO DAILY 90 days fexofenadine (Radha Allergy) 180 mg PO DAILY PRN furosemide 20 mg PO QAM PRN glipizide 10 mg PO DAILY 90 days hydrochlorothiazide 25 mg PO DAILY 90 days [LIGHTWEIGHT adjustable height WALKER As directed] metformin 2 tabs in am and 1 tab in pm PO 2 times a day; 90 days pioglitazone 30 mg PO DAILY 90 days Tobacco use date assessed: 01/30/25 Fall risk assessment: No Falls in past year Last assessed Fall Risk: 01/30/25 Dental Screening Dental Screen Date: 01/30/25 Did you have a dental visit in the last 12 months?: Yes Did you have a dental problem in the last 6 months where you did not have access to dental care?: No Was dental information given to patient?: Patient has dentist HPI htn/hld/dm HPI Details The patient is 79 year old male with significant past medical history of HTN, HLD, DM Presenting with a follow-up for multiple chronic conditions including hypertension, diabetes, chronic bilateral lower leg edema, and anemia. The patient has a history of hypertension that has been difficult to control, which has been exacerbated by stress during the recent office visits. The blood pressure was notably high upon arrival today due to aggravation with the office staff. The patient mentions a history of controlled Type 2 Diabetes Mellitus with an A1c less than 7. However, recent lab results indicated a slightly elevated microalbumin level, suggesting possible poor control of either hypertension or diabetes. The patient also reports anemia with fluctuating CBC levels correlating with illnesses such as colds. He has chronic bilateral lower leg edema for nearly 25 years, treated with diuretics, including Lasix (furosemide) and hydrochlorothiazide. The edema seems unchanged despite treatment. His previous injury has led to limited neck motion that persists. Recent experiences of respiratory infection were treated with azithromycin and prednisone, resulting in persistent wheezing. There is no self-monitoring of blood pressure at home, and he denies regular exercise since a recent respiratory illness. Recent chest x-ray showed no acute findings. [facility] Medical History (Updated 01/30/25 @ 11:04 by MICHAEL Henning) Myocardial infarction Pain and swelling of right lower leg Obesity (BMI 30-39.9) Anxiety Insomnia Carpal tunnel syndrome, left Pain of left lateral upper thigh Neuropathic pain of both feet Lymphedema of both lower extremities Essential hypertension Controlled diabetes mellitus with diabetic polyneuropathy Cataracts, bilateral Diabetes mellitus Surgical History Pure hypercholesterolemia History of hemorrhoidectomy History of appendectomy Family History Father Lung cancer Mother FH: ovarian cancer Social History Housing: House Alcohol intake: current Alcohol intake frequency: a few times a week Patient Tobacco Use Status: Never used Tobacco e-Cigarette/Vaping Use: Never Used Second Hand Smoke Exposure: Yes service: Yes Current occupational status: retired Cognitive needs: No Hearing needs: No Vision needs: Yes Questionnaire PHQ-9 Over the last 2 weeks, how often have you been bothered by any of the following problems? 1. Little interest or pleasure in doing things: not at all 2. Feeling down, depressed, or hopeless: not at all 3. Trouble falling or staying asleep, or sleeping too much: not at all 4. Feeling tired or having little energy: not at all 5. Poor appetite or overeating: not at all 6. Feeling bad about yourself - or that you are a failure or have let yourself or your family down: not at all 7. Trouble concentrating on things, such as reading the newspaper or watching television: not at all 8. Moving or speaking so slowly that other people could have noticed. Or the opposite - being so fidgety or restless that you have been moving around a lot more than usual: not at all 9. Thoughts that you would be better off or of hurting yourself in some way: not at all Total score: 0 Depression Screening Interpretation: Negative Depression Screening Done: Yes Source: Developed by Drs. Vijay Mason, Isabelle Morales, Haris Lopez and colleagues, with an educational yosi from [employer]. Thrive Questionnaire Date Thrive assessed: 01/30/25 I am a: Patient What is your living situation today?: I have a steady place to live Within the past 12 months, did the food you bought not last and you didn't have the money to get more?: Never true Within the past 12 months, did you worry whether your food would run out before you got money to buy more?: Never true Do you have trouble paying for medicines?: No Do you have trouble getting transportation to medical appointments?: Yes Do you have trouble paying your heating and electricity bill?: No Do you have trouble taking care of your child, family member or friend?: No Do you have trouble with day-to-day activities such as bathing, preparing meals, shopping, managing finances, etc.?: No Are you currently unemployed and looking for a job?: No Are you interested in more education?: No Please select the resources that you would like help with: None Currently or been in a relationship where the following occur: I choose not to answer THRIVE Score: 1 AUDIT C Alcohol Use Questionnaire (AUDIT-C) 1. How often do you have a drink containing alcohol?: Monthly or less Total Score: 1 Score Reviewed/Action Taken: No KIRILL-7 AMB Questionnaire KIRILL-7 Date KIRILL - 7 assessed: 01/30/25 Feeling nervous, anxious, or on edge: 0 = Not at all Not being able to stop or control worryin = Not at all Worrying too much about different things: 0 = Not at all Trouble relaxin = Not at all Being so restless that it is hard to sit still: 0 = Not at all Becoming easily annoyed or irritable: 1 = Several days Feeling afraid as if something awful might happen: 0 = Not at all Total KIRILL-7 score (0-4 normal; 5-9 mild; 10-14 moderate; 15-21 severe): 1 Source: Developed by Drs. Vijay Mason, Isabelle Morales, Haris Lopez and colleagues, with an educational yosi from [employer]. Review of Systems Const Denies headache(s) Eyes Denies loss of vision ENT Details: - Cardiovascular: Reports high blood pressure, denies shortness of breath - Respiratory: Reports previous wheezing, currently no respiratory complaints - Extremities: Reports chronic bilateral lower leg edema with swelling Denies vertigo, Denies dizziness, Denies headache(s) and Denies sore throat Card Denies chest pain, Reports pedal edema, Reports leg edema, Denies lightheadedness and Denies dyspnea (But reports that he feels that he is a bit deconditioned ) Resp Reports cough (intermittently coughing up phlegm), Denies hemoptysis, Denies dyspnea (But reports that he feels that he is a bit deconditioned ) and Reports wheezing (on and off) GI Denies abdominal pain, Denies melena, Denies constipation, Denies diarrhea and Denies vomiting Denies dysuria, Denies urinary frequency and Denies urinary urgency Musc Reports stiffness (Neck chronic, old injury) Neuro Denies Abnormal speech present, Denies vertigo, Denies dizziness, Denies headache(s) and Denies loss of vision Aller/Immun Reports wheezing (on and off) Physical exam (Primary Care) Vital Signs: Last Vital Signs Temp 97.6 F 01/30/25 10:28 Pulse 111 H 01/30/25 10:28 Resp 24 H 01/30/25 10:28 BP 162/70 H 01/30/25 10:28 Pulse Ox 97 01/30/25 10:28 Oxygen Delivery Method Room Air 01/30/25 10:28 BMI result Body Mass Index 35.4 Tobacco/Smoking Status: Tobacco use Status Tobacco use date assessed 01/30/25 01/30/25 10:35 Patient Tobacco Use Status Never used Tobacco 01/30/25 10:35 e-Cigarette/Vaping Use Never Used 01/30/25 10:35 PHQ-9: PHQ-9 Score PHQ-9: Total score 0 01/30/25 11:25 Depression Screening Interpretation: Negative Thrive Assessment: Date of Thrive Assessment Date Thrive assessed 01/30/25 01/30/25 10:35 Currently or been in a relationship where the following occur: I choose not to answer Const General: healthy appearing, no acute distress, alert and awake Nutritional Appearance: well nourished Orientation/consciousness: oriented to person, oriented to place and oriented to time HENMT Ears: TM's normal bilaterally General nose exam: Normal nasal mucous membranes and turbinates present Eyes Conjunctivae: conjunctivae normal Sclerae: sclerae normal Pupils: Equal, round and reactive pupils present Neck Neck: Yes no lymphadenopathy Thyroid: Thyroid normal Carotids: no bruits Resp Effort & Inspection: normal respiratory effort and not tachypneic Auscultation: no crackles, no rales, no rhonchi and no wheezes Cardio Rate: regular rate Rhythm: regular rhythm Heart sounds: no murmurs and normal S1 and S2 GI Palpation (GI): Soft to palpation, nontender, no hepatomegaly and no splenomegaly Auscultation: normal bowel sounds Back/Spine/Pelvis Cervical Spine: No cervical muscular tenderness Neuro General: oriented to person, oriented to place and oriented to time Cranial nerves: Yes Equal, round and reactive pupils present Speech: No Abnormal speech present Gait exam (Neuro): Normal gait present and Assistive device used (cane) Motor exam (neuro): no tremor noted Extrem Right upper extremity: full ROM Left upper extremity: full ROM Right lower extremity: full ROM and edema Details: pitting and 4+ Left lower extremity: full ROM and edema Details: pitting and 4+ Results Reviewed Results Reviewed: Laboratory Tests 01/28/25 10:45 WBC 5.2 RBC 4.64 Hgb 13.2 L Hct 41.6 L MCV 89.7 MCH 28.4 MCHC 31.7 RDW 15.1 Plt Count 173 Sodium 137 Potassium 3.9 Chloride 102 Carbon Dioxide 28 Anion Gap 11 L BUN 13 Creatinine 0.81 Estimated GFR > 60 Fasting Glucose 114 H Estimat Average Glucose 131 Hemoglobin A1c % 6.2 H Calcium 9.1 Total Bilirubin 0.6 AST 24 ALT 18 Alkaline Phosphatase 85 Total Protein 6.4 L Albumin 3.8 Triglycerides 53 Cholesterol 129 LDL Cholesterol, Calc 60 HDL Cholesterol 59 25-OH Vitamin D Total 50.1 TSH 1.23 Urine Color Yellow Urine Appearance Clear Urine pH >= 9.0 Ur Specific [place] 1.010 Urine Protein Negative Urine Glucose (UA) Negative Urine Ketones Negative Urine Blood Negative Urine Nitrite Negative Ur Leukocyte Esterase Negative Urine Creatinine 48.71 Urine Microalbumin 19.0 Microalb/Creat Ratio 39.0 H Coding Level of Care Code Est Pt Level 4 (97621) Diagnoses Leg swelling M79.89 Obesity (BMI 30-39.9) E66.9 Pure hypercholesterolemia E78.00 Essential hypertension I10 Controlled type 2 diabetes mellitus with diabetic polyneuropathy, without long- term current use of insulin E11.42 Diabetes mellitus intermediate insulin use: without intermediate use Diabetes mellitus type: type 2 Type 2 diabetes mellitus with diabetic polyneuropathy, without long-term current use of insulin E11.42 Diabetes mellitus complication detail: with polyneuropathy Diabetes mellitus complication status: with neurologic complications Diabetes mellitus intermediate school teacher insulin use: without intermediate school teacher use Diabetes mellitus type: type 2 Time Spent (min) 38 Assessment & Plan Assessment & Plan (1) Leg swelling: Code(s): M79.89 - Other specified soft tissue disorders Category: Medical (2) Obesity (BMI 30-39.9): Code(s): E66.9 - Obesity, unspecified Category: Medical (3) Pure hypercholesterolemia: Code(s): E78.00 - Pure hypercholesterolemia, unspecified Category: Surgical (4) Essential hypertension: Code(s): I10 - Essential (primary) hypertension Category: Medical (5) Controlled diabetes mellitus with diabetic polyneuropathy: Code(s): E11.42 - Type 2 diabetes mellitus with diabetic polyneuropathy Category: Medical Qualifiers: Diabetes mellitus intermediate school teacher insulin use: without intermediate use Diabetes mellitus type: type 2 Qualified Code(s): E11.42 - Type 2 diabetes mellitus with diabetic polyneuropathy (6) Diabetes mellitus: Code(s): E11.9 - Type 2 diabetes mellitus without complications Category: Medical Qualifiers: Diabetes mellitus complication detail: with polyneuropathy Diabetes mellitus complication status: with neurologic complications Diabetes mellitus intermediate school teacher insulin use: without intermediate use Diabetes mellitus type: type 2 Qualified Code(s): E11.42 - Type 2 diabetes mellitus with diabetic polyneuropathy Plan I identified stress as a factor in the patient?s hypertension and provided guidance on strategies to manage it. He is currently take amlodipine-benazepril 10-20mg and hydrochlorothiazide 25 mg daily. I recommended an increased dose of Lasix to 40mg for a week to manage edema, with a follow-up on BNP and BMP in 1 week. A referral to a vascular clinic will enable further assessment of persistent leg swelling. The patient was informed of the importance of a high- protein diet and continuing his Vitamin D intake. Consistent blood pressure monitoring was advised, though the patient stated he does not do so at home. The patient recently had a chest x-ray that showed no acute findings Patient was informed and verbally consented to the use of an ambient scribe for clinic note documentation during this visit. Orders: Orders B Type Natriuretic Peptide 1 Week M79.89 - Other specified soft tissue disorders Basic Metabolic Panel 1 Week M79.89 - Other specified soft tissue disorders Referrals Vascular Surgery Referral M79.89 - Other specified soft tissue disorders
== END 2025-01-30 11:18 | disposition home or self-care (01) ==
LOC: HO.HMCH 10:27
PROVIDERS: PCP Internal Medicine
DX: M79.89 Other specified soft tissue disorders (principal); E11.42 Type 2 diabetes mellitus with diabetic polyneuropathy; E66.9 Obesity, unspecified; Z68.35 Body mass index [BMI] 35.0-35.9, adult; E78.00 Pure hypercholesterolemia, unspecified; I10 Essential (primary) hypertension

== ENCOUNTER → 2025-01-30 10:26 | Outpatient (BNVA) | payer BC, SELFPAY | PROVIDERS: PCP Internal Medicine | DX: Z13.89 Encounter for screening for other disorder (principal) ==

== ENCOUNTER 2025-02-11 08:53 | Outpatient (REF) | payer BC, SELFPAY ==
[2025-02-11 10:57] LABS: Anion Gap 12 (12-20); Blood Urea Nitrogen 12 mg/dL (9-16); Calcium 9.4 mg/dL (8.4-10.2); Carbon Dioxide 30 mmol/L (22-29); Chloride 101 mmol/L (96-108); Estimated Glomerular Filt Rate > 60; Glucose Random 108 mg/dL (60-115); Potassium 3.7 mmol/L (3.3-5.1); Sodium 139 mmol/L (135-145)
[2025-02-11 11:20] LABS: B Type Natriuretic Peptide 19 pg/mL (<100)
== END 2025-02-11 08:54 | disposition home or self-care (01) ==
LOC: HO.HMGCLDS 08:53
PROVIDERS: PCP Internal Medicine
DX: M79.89 Other specified soft tissue disorders (principal)
CPT/HCPCS: 36415; 80048; 83880

== ENCOUNTER 2025-02-19 10:12 | Outpatient (AMB) | payer BC, SELFPAY ==
[2025-02-19 10:13] VITALS: BMI 35.4
--- NOTE | 2025-02-19 10:13 | MHC.OFFVIS ---
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 Pt states it worsened about 3 years ago when he became less ambulatory. Pt states he walks 1 mile daily w/ walker, w/o walker he can't walk very far before needing to rest. Pt states he had increase in lasix and that has helped some. 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 Complaints include pain, particularly over the ankles, swelling of lower extremities, and heaviness of the lower extremities. It has been affecting their daily activities including walking, standing, and physical activity. It is noted in bilateral legs. 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 He denies any injuries to bilateral lower extremities. He states he walks appx 1 mile 3-4/week; he is only able to do it with his walker; he cannot walk far distances without his walker. He does elevate his legs when sitting. He currently wears diabetic socks daily. He is a nonsmoker. He is a DM II on medication only; his most recent A1C on 01/28 was 6.2%. Patient denies any previous venous surgery or injections. Patient denies any history of DVT/ PE. Patient denies any history of phlebitis. Trial of compression includes - elevation and diabetic socks, both which help minimally They now present for vascular evaluation regarding their varicose veins. [facility] Medical History Myocardial infarction Pain and swelling of right lower leg Obesity (BMI 30-39.9) Anxiety Insomnia Carpal tunnel syndrome, left Pain of left lateral upper thigh Neuropathic pain of both feet Lymphedema of both lower extremities Essential hypertension Controlled diabetes mellitus with diabetic polyneuropathy Cataracts, bilateral Diabetes mellitus Surgical History Pure hypercholesterolemia History of hemorrhoidectomy History of appendectomy Family History Father Lung cancer Mother FH: ovarian cancer Social History Housing: House Alcohol intake: current Alcohol intake frequency: a few times a week Patient Tobacco Use Status: Never used Tobacco e-Cigarette/Vaping Use: Never Used Second Hand Smoke Exposure: Yes service: Yes Current occupational status: retired Cognitive needs: No Hearing needs: No Vision needs: Yes Review of Systems Const Reports as per HPI and Denies weakness ENT Reports Normal hearing present and Denies dizziness Card Reports as per HPI, Denies chest pain, Denies chest pain at rest, Denies chest pain with activity, Denies dyspnea and Denies dyspnea on exertion Resp Reports as per HPI, Denies cough, Denies dyspnea and Denies dyspnea on exertion GI Reports as per HPI, Denies abdominal pain, Denies nausea and Denies vomiting Musc Denies numbness Skin/Breast Reports as per HPI, Denies erythema and Denies wounds Neuro Reports Normal hearing present, Denies dizziness, Denies numbness, Denies Sensory deficit (Neuro) and Denies weakness Psych Reports no additional complaints Endo Reports no additional complaints Physical Exam Vital Signs: BMI result Body Mass Index 35.4 Const General: healthy appearing and no acute distress Orientation/consciousness: patient oriented x3 HEENT Head: Yes normal to inspection Ears: hearing grossly normal bilaterally Mouth: Normal oral and palatal mucosa present Resp Effort & Inspection: normal respiratory effort and able to speak in complete sentences Auscultation: clear to auscultation bilaterally Cardio Jugular venous distension: no JVD Rate: regular rate Rhythm: regular rhythm Heart sounds: S1 normal heart sound present and S2 normal heart sound present Bruits: no abdominal aortic bruits, no carotid bruits, no femoral bruits and no renal bruits Peripheral pulses: Peripheral pulses 2+ throughout GI Inspection: Yes normal to inspection Palpation (GI): No Abdominal aortic bruit present Skin General skin exam: no rashes or lesions noted Wounds: no wounds Hair: normal Neuro General: patient oriented x3 Cranial nerves: Yes Normal hearing present Cognition (Neuro): normal cognition Gait exam (Neuro): Normal gait present Motor exam (neuro): 5/5 motor strength present throughout Sensory Exam: No Sensory deficit (Neuro) Extrem Other: Bilateral lower extremities: +3 pitting edema. Unable to palpate DP pulse due to edema. Hyperkeratosis and hyperpigmentation noted from the tibial tuberosity to the ankles. No tortuosities or varicosities noted. No wounds or injuries noted. CEAP: C - 4 E - primary A - superficial P - reflux Right in cm: Thigh 57 Knee 54 Calf 54 Ankle 40 Left in cm: Thigh 56 Knee 54 Calf 52 Ankle 50 General: Yes normal to inspection, Yes full ROM, Yes capillary refill normal and Yes normal gait Assessment & Plan Assessment & Plan (1) Varicose veins of both lower extremities with inflammation: Code(s): I83.11 - Varicose veins of right lower extremity with inflammation; I83.12 - Varicose veins of left lower extremity with inflammation Category: Medical Plan: Miguel Ángel is presenting today on a referral from his PCP for ongoing bilateral lower extremity swelling >35y, worse the last 3y. In short, the patient has evidence of venous insufficiency. I have discussed the pathophysiology with the patient. In addition I have provided informational material regarding venous disease to the patient. We have discussed conservative measures including compression, elevation, and exercise. I have also provided a handout regarding appropriate use of compression stockings and where to purchase good compression stockings as well. I have taken the liberty of ordering venous insufficiency testing with the patient. They will follow up with me after testing. The patient had an opportunity to ask questions regarding the treatment plan. All questions were answered. Imaging studies, laboratory studies and physical exam results were discussed and reviewed in detail. No major barriers to understanding were identified. The patient expressed understanding and agreement with the above treatment plan. The patient is aware they should contact our office by phone for worsening of the current condition or the appearance of new symptoms. Thank you for allowing me to participate in the vascular care of this patient. If you have any questions or concerns regarding the treatment for the above condition please do not hesitate to contact me. The office telephone contact is [phone]. This note is constructed using voice recognition software. While every effort has been made to ensure accuracy, primary care pediatrician errors may have been included. Thank you for allowing me to participate in the care of your patient. Yours sincerely, BRENDA Barrera (2) Lymphedema: Code(s): I89.0 - Lymphedema, not elsewhere classified Category: Medical Plan: Miguel Ángel is presenting today for a 35+ year hx of bilateral lower extremity swelling with pain/discomfort as well as hyperpigmentation and hyperkeratosis. In short, the patient has late onset lymphedema. The patient has been on conservative treatment for at least 3 months with minimal relief. Patient has tried 30 mm of mercury compression garments, elevation, exercise, healthy diet, and doing manual says self MLD to the best of their ability for over 4 weeks but with no significant relief. He has been compliant with the program, but it has provided minimal relief. In addition, on physical exam, we are noticing hyperpigmentation and hyperplasia. It appears that he has stage 2 lymphedema. Patient has completed multiple forms of conservative therapy; yet, significant symptoms remain. Patient requires the use of a pneumatic compression device which we will assist in trying to have the patient obtain them. A pneumatic compression device will help reduce swelling and other lymphedema comorbidities. We will have him attend our lymphedema clinic on April 10. I have given him some information about the compression pumps/devices. Thank you for allowing us to assist in this patient's care. Orders: Orders US venous duplex LE BI 1 Week I83.11 - Varicose veins of right lower extremity with inflammation, I83.12 - Varicose veins of left lower extremity with inflammation Coding Level of Care Code New Pt Level 4 (18498) Diagnoses Varicose veins of both lower extremities with inflammation I83.11; I83.12 Lymphedema I89.0
== END 2025-02-19 10:55 | disposition home or self-care (01) ==
LOC: HO.HVS 10:13
PROVIDERS: PCP Internal Medicine; Visit Provider Physician Assistant Surgical
DX: I83.11 Varicose veins of right lower extremity with inflammation (principal); I83.12 Varicose veins of left lower extremity with inflammation; I89.0 Lymphedema, not elsewhere classified
CPT/HCPCS: 99204

== ENCOUNTER → 2025-02-19 10:12 | Outpatient (BNVA) | payer BC, SELFPAY | PROVIDERS: PCP Internal Medicine; Visit Provider Physician Assistant Surgical ==

== ENCOUNTER 2025-04-04 10:16 | Outpatient (REF) | payer BC, SELFPAY ==
--- NOTE | ~2025-04-04 | US_ITS ---
EXAMINATION: US LOWER EXTREMITY VENOUS (REFLUX EXAM), BILATERAL CLINICAL INFORMATION: Varices. COMPARISON: None. TECHNIQUE: Color flow triplex imaging and compression Doppler was performed to evaluate both the deep and the superficial systems bilaterally. To evaluate the superficial system, the examination was performed in the upright position. Color-flow Doppler ultrasound and compression ultrasound were utilized. In addition, maneuvers were utilized to demonstrate reflux. FINDINGS: 1. DEEP VENOUS ULTRASOUND OF THE RIGHT LOWER EXTREMITY: Common Femoral Vein: Compressible, normal respiratory variation and augmented flow. Femoral Vein: Compressible, normal color flow and augmentation. Popliteal Vein: Compressible, normal augmentation. Deep Reflux: There is no evidence of reflux in the deep system in either the common femoral vein, superficial femoral or the popliteal vein. There is no evidence of a Schaeffer's cyst. 2. SUPERFICIAL ULTRASOUND WITH DOPPLER OF RIGHT LOWER EXTREMITY: GREAT SAPHENOUS VEIN: Saphenofemoral Junction: 0.7 cm; Reflux: 0 ms Proximal Thigh: 0.3 cm; Reflux: 0 ms Mid Thigh: 0.3 cm; Reflux: 0 ms Distal Thigh: 0.3 cm; Reflux: 0 ms At Knee: 0.3 cm; Reflux: 0 ms Proximal Calf: 0.3 cm; Reflux: 0 ms Mid Calf: 0.3 cm; Reflux: 0 ms Distal Calf: 0.3 cm; Reflux: 0 ms DUPLICATED MEDIAL GREAT SAPHENOUS VEIN: Diameter: 0.4 cm. Reflux: NA DUPLICATED LATERAL GREAT SAPHENOUS VEIN: Diameter: None imaged Reflux: NA SMALL SAPHENOUS VEIN: Saphenopopliteal Junction: 0.3 cm; Reflux: 0 ms Proximal: 0.3 cm; Reflux: 0 ms Distal: 0.2 cm; Reflux: 0 ms VEIN OF GIACOMINI: Size: 0.4 cm. Reflux: NA PERFORATORS: Location: Small saphenous vein, mid segment. Proximal calf. Size: 0.1-0.3 cm. Reflux: NA VARICOSITIES: Location: None imaged. Size: NA Reflux: NA 3. DEEP VENOUS ULTRASOUND OF THE LEFT LOWER EXTREMITY: Common Femoral Vein: Compressible, normal respiratory variation and augmented flow. Femoral Vein: Compressible, normal color flow and augmentation. Popliteal Vein: Compressible, normal augmentation. Deep Reflux: There is no evidence of reflux in the deep system in either the common femoral vein, superficial femoral or the popliteal vein. There is no evidence of a Schaeffer's cyst. 4. SUPERFICIAL ULTRASOUND WITH DOPPLER OF LEFT LOWER EXTREMITY: GREAT SAPHENOUS VEIN: Saphenofemoral Junction: 0.9 cm; Reflux: 0 ms Proximal Thigh: 0.4 cm; Reflux: 0 ms Mid Thigh: 0.2 cm; Reflux: 0 ms Distal Thigh: 0.1 cm; Reflux: 0 ms At Knee: 0.1 cm; Reflux: 0 ms Proximal Calf: 0.2 cm; Reflux: 0 ms Mid Calf: 0.2 cm; Reflux: 0 ms Distal Calf: 0.3 cm; Reflux: 0 ms DUPLICATED MEDIAL GREAT SAPHENOUS VEIN: Diameter: None imaged Reflux: NA DUPLICATED LATERAL GREAT SAPHENOUS VEIN: Diameter: 0.4 cm. Reflux: NA SMALL SAPHENOUS VEIN: Saphenopopliteal Junction: 0.2 cm; Reflux: 0 ms Proximal: 0.2 cm; Reflux: 0 ms Distal: 0.2 cm; Reflux: 0 ms VEIN OF GIACOMINI: Size: 0.2 cm. Reflux: NA PERFORATORS: Location: Proximal thigh and proximal to mid calf. Size: 0.2 cm. Reflux: NA VARICOSITIES: Location: Proximal thigh. Size: 0.3 cm. Reflux: NA US/US venous insuf bilat IMPRESSION: Right: No venous insufficiency. No gross varices. Perforators without reflux. Left: No venous insufficiency. Varices without reflux, proximal thigh. Perforators without reflux. Electronically signed by: Beto Lucio MD 04/04/2025 11:41 AM EDT
--- OUTSIDE RECORDS SUMMARY | 2025-04-04 10:58 | XMS_ITS | Patient Health Record ---
Author Organization [facility] Address [address] [place] [address] Care Team Providers Care Recruitment Officer Name Role Phone Vivek Holloway MD Primary Care Provider Edmundo Ivey Jr Unavailable Allergies Allergen (clinical drug ingredient) Drug/Non Drug Allergy documented on EMR Reaction Allergy Type Onset Date Status Penicillin Unknown Drug Allergy Active Reason For Referral No Information Medications Medication SIG (Take, Route, Frequency, Duration) Notes Start Date End Date Status Suprep Bowel Prep 1 as directed Orally 1 for 1 dose 12/18/2014 Active Aspirin 81 MG 1 tablet Orally Once a day Active Crestor 20 MG 1 tablet Orally Once a day Active amLODIPine Besy-Benazepril H Cl 10-20 MG 1 capsule Orally Once a day Active hydroCHLOROthiazide 12.5 MG 1 capsule Or ally Once a day Active Aleve 220 MG 1 tablet as needed Orally every 12 hrs Active Actos 30 MG 1 tablet Orally Once a day Active metFORMIN HCl 500 MG 1 tablet with meals Orally Twice a day Active glipiZIDE 10 MG 1 tablet Orally Once a day Active Problems Problem Type SNOMED Code ICD Code Onset Dates Problem Status W/U Status Risk Notes Problem 06843833 Diarrhea (787.91) Active confirmed Problem 72734506 Hemorrhoids (455.6) Active confirmed Problem 356827759 Colon cancer screening (V76.51) Active confirmed Plan Of Treatment Future Test Test Name Order Date COLONOSCOPY 12/18/2014 Insurance Providers Payer Name Payer Address Payer Phone Subscriber Number Group Number Insured Name Patient Relationship to Insured Coverage Start Date Coverage End Date [facility] [address] [place], [place] [id number] [phone] [id number] NATHEN BETANCOURT Self - patient is the insured Medical (General) History Medical History History ICD Code diabetes mellitus hypertension coronary disease, history of MS osteoarthritis elevated cholesterol Surgical History Surgery Date(Month/Year) appendectomy
== END 2025-04-04 10:17 | disposition home or self-care (01) ==
LOC: HO.US 10:16
PROVIDERS: PCP Internal Medicine; Visit Provider Physician Assistant Surgical
DX: I83.11 Varicose veins of right lower extremity with inflammation (principal); I83.12 Varicose veins of left lower extremity with inflammation
CPT/HCPCS: 93970

== ENCOUNTER → 2025-04-04 10:20 | Outpatient (BNV) | payer BC, SELFPAY | PROVIDERS: PCP Internal Medicine; Visit Provider Radiology Diagnostic Radiology | DX: I83.93 Asymptomatic varicose veins of bilateral lower extremities (principal) | CPT/HCPCS: 93970 ==

== ENCOUNTER 2025-06-05 10:54 | Outpatient (AMB) | payer BC, SELFPAY ==
[2025-06-05 10:59] VITALS: BP 132/74; PULSE 112; O2SAT 93; BMI 36.1
--- NOTE | 2025-06-05 10:59 | MHC.PC.OV ---
Vital Signs 06/05/25 10:59 Height 5 ft 11 in Weight 259 lb BMI 36.1 BP 132/74 Blood Pressure Location Lt brachial Position Sitting Pulse 112 H Pulse Source Pulse Oximeter Pulse Oximetry (%) 93 Oxygen Delivery Method Room Air Intake Visit Reasons: HLD/HTN/DM Readers' Advisory Service Librarian Required: No Accompanied by: Self / Same As Patient Allergies penicillin V Allergy (Severe, Verified 06/05/25 11:25) hives Medication List - Last Reconciled 06/05/25 by Joshua Ramhan MD albuterol sulfate 90 mcg/actuation (Ventolin HFA) 2 puffs inhalation Q6H PRN 30 days amlodipine-benazepril 10-20 mg 1 cap PO DAILY 90 days aspirin (Adult Low Dose Aspirin) 81 mg PO DAILY atorvastatin 40 mg PO QPM 90 days cholecalciferol (vitamin D3) 50 mcg PO DAILY 90 days fexofenadine (Radha Allergy) 180 mg PO DAILY PRN furosemide (Lasix) 40 mg PO DAILY PRN glipizide 10 mg PO DAILY 90 days hydrochlorothiazide 25 mg PO DAILY 90 days [LIGHTWEIGHT adjustable height WALKER As directed] metformin 2 tabs in am and 1 tab in pm PO 2 times a day; 90 days pioglitazone 30 mg PO DAILY 90 days Tobacco use date assessed: 06/05/25 Fall risk assessment: No Falls in past year Last assessed Fall Risk: 06/05/25 Dental Screening Dental Screen Date: 06/05/25 Did you have a dental visit in the last 12 months?: Yes Did you have a dental problem in the last 6 months where you did not have access to dental care?: No Was dental information given to patient?: Patient has dentist HPI HLD/HTN/DM HPI Details Patient comes in today for his follow up visit States that his right knee has been acting up a lot (on and off pain and occasional mild swelling) for the past few weeks now Notes increased pain and states that he can feel a lot of crepitations in his knee when he is walking or when he puts his weight on his knee Recalls seeing Dr. Jez Denis for similar but much milder symptoms in the same knee many years ago and was advised back then that nothing was wrong with his knee Adds that he has been having a lot of trouble sleeping at night for a few years now and feels that this has gotten worse as he gets older States the he has tried taking several OTC sleep aids over the past year or so, including Tylenol PM and Melatonin, and states that they have not helped at all and he has been feeling very tired and fatigued lately from what he thinks is lack of sleep He denies any headaches or dizziness Denies any chest pains, no increased SOB No nausea/vomiting, no abdominal pain No change in bowel habits noted He has no follow up labs ordered for this visit as I last saw patient a year ago in May 2024 PENDING SALE TO [facility] Medical History Myocardial infarction Pain and swelling of right lower leg Obesity (BMI 30-39.9) Anxiety Insomnia Carpal tunnel syndrome, left Pain of left lateral upper thigh Neuropathic pain of both feet Lymphedema of both lower extremities Essential hypertension Controlled diabetes mellitus with diabetic polyneuropathy Cataracts, bilateral Diabetes mellitus Surgical History Pure hypercholesterolemia History of hemorrhoidectomy History of appendectomy Family History (Reviewed 06/05/25 @ 11: by ALISON Lake) Father Lung cancer Mother FH: ovarian cancer Social History Housing: House Alcohol intake: current Alcohol intake frequency: a few times a week Patient Tobacco Use Status: Never used Tobacco e-Cigarette/Vaping Use: Never Used Second Hand Smoke Exposure: Yes service: Yes Current occupational status: retired Cognitive needs: No Hearing needs: No Vision needs: Yes Questionnaire PHQ-9 Over the last 2 weeks, how often have you been bothered by any of the following problems? 1. Little interest or pleasure in doing things: not at all 2. Feeling down, depressed, or hopeless: not at all 3. Trouble falling or staying asleep, or sleeping too much: not at all 4. Feeling tired or having little energy: not at all 5. Poor appetite or overeating: not at all 6. Feeling bad about yourself - or that you are a failure or have let yourself or your family down: not at all 7. Trouble concentrating on things, such as reading the newspaper or watching television: not at all 8. Moving or speaking so slowly that other people could have noticed. Or the opposite - being so fidgety or restless that you have been moving around a lot more than usual: not at all 9. Thoughts that you would be better off or of hurting yourself in some way: not at all Total score: 0 Depression Screening Interpretation: Negative Depression Screening Done: Yes 45141 - PHQ-9 Billing: Yes Source: Developed by Drs. Vijay Mason, Isabelle Morales, Haris Lopez and colleagues, with an educational yosi from [employer]. Thrive Questionnaire Date Thrive assessed: 06/05/25 I am a: Patient What is your living situation today?: I have a steady place to live Within the past 12 months, did the food you bought not last and you didn't have the money to get more?: Never true Within the past 12 months, did you worry whether your food would run out before you got money to buy more?: Never true Do you have trouble paying for medicines?: No Do you have trouble getting transportation to medical appointments?: Yes Do you have trouble paying your heating and electricity bill?: No Do you have trouble taking care of your child, family member or friend?: No Do you have trouble with day-to-day activities such as bathing, preparing meals, shopping, managing finances, etc.?: No Are you currently unemployed and looking for a job?: No Are you interested in more education?: No Please select the resources that you would like help with: None Currently or been in a relationship where the following occur: I choose not to answer THRIVE Score: 1 AUDIT C Alcohol Use Questionnaire (AUDIT-C) 1. How often do you have a drink containing alcohol?: Monthly or less 2. How many drinks containing alcohol do you have on a typical day when you are drinking?: 1 or 2 3. How often do you have six or more drinks on one occasion?: Never Total Score: 1 Score Reviewed/Action Taken: Yes KIRILL-7 AMB Questionnaire KIRILL-7 Date KIRILL - 7 assessed: 06/05/25 Feeling nervous, anxious, or on edge: 0 = Not at all Not being able to stop or control worryin = Not at all Worrying too much about different things: 0 = Not at all Trouble relaxin = Not at all Being so restless that it is hard to sit still: 0 = Not at all Becoming easily annoyed or irritable: 1 = Several days Feeling afraid as if something awful might happen: 0 = Not at all Total KIRILL-7 score (0-4 normal; 5-9 mild; 10-14 moderate; 15-21 severe): 1 Source: Developed by Drs. Vijay Mason, Isabelle Morales, Haris Lopez and colleagues, with an educational yosi from [employer]. Review of Systems Const Denies chills, Reports difficulty sleeping, Reports fatigue, Denies fever(s) and Denies headache(s) ENT Denies dysphagia, Denies dizziness, Denies otalgia, Denies headache(s), Denies neck pain, Denies odynophagia and Denies sore throat Card Denies chest pain and Reports dyspnea on exertion (mild) Resp Denies chest congestion, Denies cough and Reports dyspnea on exertion (mild) GI Denies abdominal pain, Denies constipation, Denies dysphagia, Denies heartburn, Denies diarrhea, Denies nausea, Denies odynophagia and Denies vomiting Denies difficulty urinating, Denies dysuria, Denies nocturia and Reports urinary frequency (mostly during the day and after he drinks his morning coffee) Musc Reports back pain (on and off over the lower back), Reports arthralgias (increased over the right knee lately) and Denies neck pain Skin/Breast Denies rash Neuro Denies dizziness and Denies headache(s) Psych Reports depression (improving) Endo Reports fatigue Nolberto/Lymph Details: frequent swelling of both legs and feet Physical exam (Primary Care) Vital Signs: Last Vital Signs Pulse 112 H 06/05/25 10:59 BP 132/74 06/05/25 10:59 Pulse Ox 93 06/05/25 10:59 Oxygen Delivery Method Room Air 06/05/25 10:59 BMI result Body Mass Index 36.1 Tobacco/Smoking Status: Tobacco use Status Tobacco use date assessed 06/05/25 06/05/25 11:03 Patient Tobacco Use Status Never used Tobacco 06/05/25 11:03 e-Cigarette/Vaping Use Never Used 06/05/25 11:03 PHQ-9: PHQ-9 Score PHQ-9: Total score 0 06/05/25 11:16 Depression Screening Interpretation: Negative Thrive Assessment: Date of Thrive Assessment Date Thrive assessed 06/05/25 06/05/25 11:03 Currently or been in a relationship where the following occur: I choose not to answer Const General: no acute distress and alert HENMT Ears: TM's normal bilaterally and EAC's normal Throat: Yes posterior oropharynx normal and Yes tonsils normal (no TP congestion noted) Neck Neck: Yes supple and No lymphadenopathy Thyroid: Thyroid normal Resp Auscultation: clear to auscultation bilaterally, no rales and no wheezes Cardio Rate: regular rate Rhythm: regular rhythm Heart sounds: no murmurs GI Palpation (GI): Soft to palpation and nontender Auscultation: normal bowel sounds General: Yes no CVA tenderness Back/Spine/Pelvis Back: no CVA tenderness Thoracic/Lumbar Spine: lumbar spinal tenderness (mild) Skin Rashes: no rashes Extrem General: No clubbing, No cyanosis and Yes edema (2+ edema of both legs and feet - currently has compression stockings on) Right lower extremity: knee Details: tenderness Location: of the medial joint line and of the pre-patellar area; no swelling Left lower extremity: hip/thigh Details: tenderness Location: of the hip Results AMB Hemoglobin A1c AMB Hemoglobin A1c 6.4 % Last Edit by ALISON Lake on 06/05/25 11:16 Results Reviewed Results Reviewed: Laboratory Last Values Hgb A1c (Clinic) 6.4 % (4.0-6.0) H 06/05/25 11:15 Coding Level of Care Code Est Pt Level 4 (14378) Complex EM visit Add On G2211 Diagnoses Essential hypertension I10 Pure hypercholesterolemia E78.00 Type 2 diabetes mellitus with diabetic polyneuropathy, without long-term current use of insulin E11.42 Diabetes mellitus type: type 2 Diabetes mellitus middle or intermediate school principal insulin use: without middle or intermediate school principal use Diabetes mellitus complication status: with neurologic complications Diabetes mellitus complication detail: with polyneuropathy Lymphedema of both lower extremities I89.0 Neuropathic pain of both feet G57.93 Right knee pain, unspecified chronicity M25.561 Chronicity: unspecified Onychomycosis of toenail B35.1 Primary insomnia F51.01 Insomnia type: primary Anxiety F41.9 Obesity (BMI 30-39.9) E66.9 Additional Codes PHQ-9 - 18534 - PHQ-9 Billing: Yes ([id number]) Assessment & Plan Assessment & Plan (1) Essential hypertension: Code(s): I10 - Essential (primary) hypertension Category: Medical Plan: Reinforced low sodium diet - goal is systolic BP of at least 140 mm or less Continue Amlodipine-Benazepril 10-20 mg QD and HCTZ 25 mg QD Patient is reminded to continue monitoring his BP closely (2) Pure hypercholesterolemia: Code(s): E78.00 - Pure hypercholesterolemia, unspecified Category: Surgical Plan: Patient has no follow up labs ordered for his appointment today Reinforced low cholesterol diet Continue Atorvastatin 40 mg QD Will have him recheck his labs and fasting lipids in 4 months for follow up (3) Diabetes mellitus: Code(s): E11.9 - Type 2 diabetes mellitus without complications Category: Medical Qualifiers: Diabetes mellitus type: type 2 Diabetes mellitus middle or intermediate school principal insulin use: without middle or intermediate school principal use Diabetes mellitus complication status: with neurologic complications Diabetes mellitus complication detail: with polyneuropathy Qualified Code(s): E11.42 - Type 2 diabetes mellitus with diabetic polyneuropathy Plan: His in-office HgbA1c today is at 6.4% (his HgbA1c was previously at 6.2% back in January 2025) - goal is <6.5% Reinforced diabetic diet Continue Glipizide 10 mg QD, Pioglitazone 30 mg QD and Metformin 500 mg BID (4) Lymphedema of both lower extremities: Code(s): I89.0 - Lymphedema, not elsewhere classified Category: Medical Plan: Patient takes Furosemide 20 mg Q AM PRN for edema He is now also following up with vascular surgery and our lymphedema clinic regularly for continuing management og his leg swelling and is reinforced to continue with leg elevation as often as he can and use of compression stockings PRN to help manage his edema (5) Neuropathic pain of both feet: Code(s): G57.93 - Unspecified mononeuropathy of bilateral lower limbs Category: Medical Plan: This is mostly due to diabetic neuropathy States that his lower extremity symptoms are mostly tolerable and he still does not require any Rx or intervention at this time (6) Right knee pain: Code(s): M25.561 - Pain in right knee Category: Medical Qualifiers: Chronicity: unspecified Qualified Code(s): M25.561 - Pain in right knee Plan: Will send him for x-rays of the right knee MORENO for further evaluation Advised that he will likely need to see orthopedics for his knee but we will wait and see how his x-rays come out first (7) Onychomycosis of toenail: Code(s): B35.1 - Tinea unguium Category: Medical Plan: Follow up with podiatry as scheduled (8) Insomnia: Code(s): G47.00 - Insomnia, unspecified Category: Medical Qualifiers: Insomnia type: primary Qualified Code(s): F51.01 - Primary insomnia Plan: Sleep hygiene reinforced Mirtazapine was helping with his sleep previously until a couple of years ago - his trouble sleeping has apparently gotten worse since his in the fall of 2022 but it has improved again after a while and he eventually stopped taking this on his own He was also on Trazodone 50 mg Q HS PRN a few years ago but he stopped taking this on his own as well at some point States that he has tried several OTC sleep aids recently without any success, including Tylenol PM and Melatonin Will start him back for now on Trazodone 50 mg Q HS PRN (9) Anxiety: Code(s): F41.9 - Anxiety disorder, unspecified Category: Medical Plan: He was on Mirtazapine 30 mg Q HS previously but he stopped this on his own sometime early last year (2023) - states that his mood and anxiety have not gotten any worse since (10) Obesity (BMI 30-39.9): Code(s): E66.9 - Obesity, unspecified Category: Medical Plan: Reinforced diet; exercise and weight loss are not practical at this time due to his increasing right knee pain lately as well as his multiple comorbidities Plan Follow up in 4 months Orders: Orders Complete Blood Count Auto Diff 4 Months D64.9 - Anemia, unspecified Hemoglobin A1c 4 Months E11.9 - Type 2 diabetes mellitus without complications Vitamin D 25-OH Total 4 Months E55.9 - Vitamin D deficiency, unspecified Vitamin B12 and Folate 4 Months E53.8 - Deficiency of other specified B group vitamins AMB Hemoglobin A1c Today Z13.9 - Encounter for screening, unspecified XR knee RT 4V Today M25.561 - Pain in right knee Comprehensive [place]. Panel Fast 4 Months E78.00 - Pure hypercholesterolemia, unspecified Lipid Panel 4 Months E78.00 - Pure hypercholesterolemia, unspecified Microalbumin, Random (w Creat) 4 Months E11.9 - Type 2 diabetes mellitus without complications TSH reflex Free T4 4 Months E78.00 - Pure hypercholesterolemia, unspecified UA CC w/rflx Micro + Cult 4 Months R30.0 - Dysuria Medications: New trazodone 50 mg PO BEDTIME PRN 30 tabs 2RF sleep 30 days
--- OUTSIDE RECORDS SUMMARY | 2025-06-05 13:51 | XMS_ITS | Patient Health Record ---
Author Organization [facility] Address [address] [place] [address] Care Team Providers Care Machine Fastener Name Role Phone Vivek Holloway MD Primary Care Provider Edmundo Ivey Jr Unavailable [phone] Allergies Allergen (clinical drug ingredient) Drug/Non Drug [...] Problem Status W/U Status Risk Notes Problem 29606925 Diarrhea (787.91) Active confirmed Problem 50459660 Hemorrhoids (455.6) Active confirmed Problem 950564260 Colon cancer screening (V76.51) Active confirmed Plan Of Treatment Future Test Test Name Order Date COLONOSCOPY 12/18/2014 Insurance Providers Payer Name Payer Address Payer Phone Subscriber Number Group Number Insured Name Patient Relationship to Insured Coverage Start Date Coverage End Date [facility] [address] [place], [place] [id number] [phone] [id number] NATHEN BETANCOURT Self - patient is the insured Medical (General) History Medical History History ICD Code diabetes mellitus hypertension coronary disease, history of MS osteoarthritis elevated cholesterol Surgical History Surgery Date(Month/Year) appendectomy
== END 2025-06-05 11:36 | disposition home or self-care (01) ==
LOC: HO.HMCH 10:55
PROVIDERS: PCP Internal Medicine; Visit Provider Internal Medicine
DX: I10 Essential (primary) hypertension (principal); E11.42 Type 2 diabetes mellitus with diabetic polyneuropathy; E66.9 Obesity, unspecified; Z68.36 Body mass index [BMI] 36.0-36.9, adult; E78.00 Pure hypercholesterolemia, unspecified; I89.0 Lymphedema, not elsewhere classified; G57.93 Unspecified mononeuropathy of bilateral lower limbs; M25.561 Pain in right knee; B35.1 Tinea unguium; F51.01 Primary insomnia; F41.9 Anxiety disorder, unspecified

== ENCOUNTER → 2025-06-05 10:54 | Outpatient (BNVA) | payer BC, SELFPAY | PROVIDERS: PCP Internal Medicine; Visit Provider Internal Medicine | DX: E11.42 Type 2 diabetes mellitus with diabetic polyneuropathy (principal); I10 Essential (primary) hypertension; E78.00 Pure hypercholesterolemia, unspecified; I89.0 Lymphedema, not elsewhere classified; G57.93 Unspecified mononeuropathy of bilateral lower limbs; M25.561 Pain in right knee; B35.1 Tinea unguium; F51.01 Primary insomnia; F41.9 Anxiety disorder, unspecified; R30.0 Dysuria; E66.9 Obesity, unspecified; Z68.36 Body mass index [BMI] 36.0-36.9, adult | CPT/HCPCS: 83036; 96127 ==

== ENCOUNTER 2025-09-20 12:58 | Outpatient (REF) | payer BC, SELFPAY ==
[2025-09-20 14:41] LABS: MANUAL DIFF FLAG NO
[2025-09-20 14:44] LABS: Hematocrit 40.0 % (42.0-52.0); Hemoglobin 12.6 g/dl (14.0-18.0); Imm Gran Abs Auto 0.02 X10*3/uL (0.00-0.03); Imm Gran Pct Auto 0.4 % (0.0-0.4); Lymphocytes Absolute Auto 0.9 X10*3/uL (1.2-4.9); Mean Corpuscular HGB Conc 31.5 g/dl (31.0-36.0); Mean Corpuscular Hemoglobin 28.6 pg (27.0-33.0); Mean Corpuscular Volume 90.7 fL (80.0-98.0); NRBC Abs Auto 0.000 X10*3/uL (0.0-0.012); NRBC Pct Auto 0.0 /100WBC (0.0-0.2); Platelet Count 184 X10*3/uL (160-400); Red Blood Count 4.41 X10*6/uL (4.60-5.80); White Blood Count 5.0 X10*3/uL (4.8-10.8)
[2025-09-20 14:49] LABS: Appearance Urine Clear; Glucose Urine UA Negative (Negative); PH 5.5 (5.0-9.0); Specific Gravity - Urine 1.010 (1.005-1.025)
[2025-09-20 14:59] LABS: Alanine Aminotransferase 13 U/L (0-40); Albumin Level 3.8 g/dL (3.5-5.0); Alkaline Phosphatase 98 U/L (39-117); Anion Gap 12 (12-20); Aspartate Amino Transferase 22 U/L (5-37); Blood Urea Nitrogen 12 mg/dL (9-16); Calcium 10.0 mg/dL (8.4-10.2); Carbon Dioxide 29 mmol/L (22-29); Chloride 102 mmol/L (96-108); Cholesterol 117 mg/dL (<200); Estimated Glomerular Filt Rate > 60; HDL Cholesterol 46 mg/dL (>40); Potassium 3.7 mmol/L (3.3-5.1); Sodium 139 mmol/L (135-145); Total Protein 6.3 g/dL (6.5-8.0); Triglycerides 66 mg/dL (<150)
[2025-09-20 15:09] LABS: Microalbum/Creatinine Ratio Ur 26.6 ug/mg cr (<30)
[2025-09-20 15:26] LABS: Folate 6.5 ng/mL (> or = 4.0); Vitamin B12 229 pg/mL (200-900)
== END 2025-09-20 12:59 | disposition home or self-care (01) ==
LOC: HO.HMGCLDS 12:58
PROVIDERS: PCP Internal Medicine; Visit Provider Internal Medicine
DX: E11.9 Type 2 diabetes mellitus without complications (principal); D64.9 Anemia, unspecified; E53.8 Deficiency of other specified B group vitamins; E55.9 Vitamin D deficiency, unspecified; E78.00 Pure hypercholesterolemia, unspecified; R30.0 Dysuria
CPT/HCPCS: 36415; 80053; 80061; 81003; 82043; 82306; 82570; 82607; 82746; 83036; 84443; 85025